=== PATIENT | female | born 1950 | race Caucasian/White ===

== ENCOUNTER 2020-03-27 10:14 | Outpatient (CLI) | payer MEDICARE, OTHER, SELFPAY ==
--- NOTE | ~2020-03-27 | MM_ITS ---
EXAMINATION: MM screening [facility] BI w yessica HISTORY: Screening mammogram TECHNIQUE: Craniocaudal and mediolateral oblique 3-D tomosynthesis images were obtained and synthetic 2-D images were generated. CAD analysis was submitted and interpreted. COMPARISON: Comparison to multiple prior studies sequentially, with oldest reviewed study dated 03/2013. BREAST PARENCHYMAL COMPOSITION: There are scattered areas of fibroglandular density. FINDINGS: There is no evidence of suspicious mass, calcification, or architectural distortion to sugg est malignancy in either breast. There has been no suspicious interval change. IMPRESSION: 1. No mammographic evidence of malignancy. 2. Recommend routine screening mammography in one year. BI-RADS Category 1: Negative Reviewed, dictated and finalized at location A.
== END 2020-03-27 10:15 | disposition home or self-care (01) ==
PROVIDERS: PCP Family Medicine; Visit Provider Obstetrics & Gynecology
DX: Z12.31 Encounter for screening mammogram for malignant neoplasm of breast (principal)
CPT/HCPCS: 77063; 77067

== ENCOUNTER 2020-04-16 13:29 | Outpatient (CLI) | payer MEDICARE, OTHER, SELFPAY ==
--- NOTE | ~2020-04-16 | DEXA_ITS ---
BMD(1) Young-Adult(2) Age-Matched(3) Region (g/cm2) T-score Z-score WHO Classification L1 1.124 -0.1 0.4 Normal L2 1.046 -1.4 -0.8 Osteopenia L3 1.115 -0.8 -0.3 Normal L4 1.039 -1.4 -0.9 Osteopenia L1-L4 1.078 -0.9 -0.4 Normal Trend: L1-L4 Change vs Change vs Measured Age BMD(1) Baseline Previous Date (years) (g/cm2) (%) (%) 04/16/2020 [age] 1.078 baseline - 1 - Statistically 68% of repeat scans fall within 1SD (+- 0.010 g/cm2 for AP Spine L1-L4) 2 - [place] (Combined NHANES (ages 20-30) / POS on CLOUD (ages 20-40)) AP Spine Reference Population (v112) 3 - Matched for Age, Weight (females 25-100 kg), Ethnic 11 - World Health Organization - Definition of Osteoporosis and Osteopenia for Women: Normal = T-score at or above -1.0 SD; Osteopenia = T-score between -1.0 and -2.5 SD; Osteoporosis = T-score at or below -2.5 SD; (WHO definitions only apply when a young healthy Women reference database is used to determine T-scores.) Printed: 04/16/2020 2:12:48 PM (13.60)76:3.00:22.22:27.0 0.00:12.36 0.60x1.05 33.1:%Fat=54.0% 0.00:0.00 0.00:0.00 Verify bone is centered and there is sufficient tissue next to bone. Filename: [id number] Scan Mode: Thick;OneScan 83.0 Azooo [id number] BMD(1) Young-Adult(2) Age-Matched(3) Region (g/cm2) T-score Z-score WHO Classification Neck 0.707 -2.4 -1.4 Osteopenia Total 0.727 -2.2 -1.5 Osteopenia Hip [place] Length Comparison (mm) (Right = 108.0 mm) (Mean = 105.4 mm) Trend: Total Change vs Change vs Measured Age BMD(1) Baseline Previous Date (years) (g/cm2) (%) (%) 04/16/2020 69.8 0.727 baseline - 1 - Statistically 68% of repeat scans fall within 1SD (+- 0.012 g/cm2 for Right Femur Total) 2 - [place] (Combined NHANES (ages 20-30) / POS on CLOUD (ages 20-40)) Femur Reference Population (v112) 3 - Matched for Age, Weight (females 25-100 kg), Ethnic 11 - World Health Organization - Definition of Osteoporosis and Osteopenia for Women: Normal = T-score at or above -1.0 SD; Osteopenia = T-score between -1.0 and -2.5 SD; Osteoporosis = T-score at or below -2.5 SD; (WHO definitions only apply when a young healthy Women reference database is used to determine T-scores.) Printed: 04/16/2020 2:12:48 PM (13.60)76:3.00:50.00:12.0 0.00:16.68 0.60x1.05 27.5:%Fat=49.1% 0.00:0.00 0.00:0.00 Neck Angle (deg)= 65 Filename: [id number] Scan Mode: Standard 37.0 uGy [employer] [id number] Dear Nliesh Quan, Your patient Iram Lord completed a BMD test on 04/16/2020 using the [employer] DXA System (analysis version: 13.60) manufactured by [employer]. The following summarizes the results of our evaluation. PATIENT BIOGRAPHICAL: Name: Iram Lord Date: 1950 Height: 63.0 in. Gender: Female Exam Date: 04/16/2020 Weight: 250.0 lbs. Indications: Back Pain, Caffeinated drinks, , Height Loss, Hyperparathyroid Fractures: Treatments: Calcium, Synthroid, Vitamin D ASSESSMENT: The BMD measured at Femur Neck is 0.707 g/cm2 with a T-score of -2.4. This patient is considered osteopenic according to World Health Organization (WHO) criteria. Bone density is between 10 and 25% below young normal. Fracture risk is moderate. Treatment
== END 2020-04-16 13:30 | disposition home or self-care (01) ==
LOC: CHSIMG 13:32
PROVIDERS: PCP Family Medicine; Visit Provider Family Medicine
DX: Z78.0 Asymptomatic menopausal state (principal)
CPT/HCPCS: 77080

== ENCOUNTER 2021-02-14 18:39 | Outpatient (CLI) | payer MEDICARE, OTHER, SELFPAY ==
--- NOTE | ~2021-02-14 | XR_ITS ---
EXAMINATION: XR knee RT min 4V DATE: 02/14/2021 19:02 INDICATION: Right knee pain TECHNIQUE: Four views of the right knee were obtained. COMPARISON: None. FINDINGS: Alignment is normal. No fracture or osteochondral lesion. There is severe osteoarthritis in the medial patellofemoral compartments and mild osteoarthritis of the lateral compartment. No joint effusion/synovitis. Soft tissues are unremarkable. IMPRESSION: 1. Severe osteoarthritis. Reviewed, dictated and finalized at location A. IMPRESSION: 1. Severe osteoarthritis.
--- NOTE | ~2021-02-14 | XR_ITS ---
EXAMINATION: XR knee LT min 4V DATE: 02/14/2021 19:02 INDICATION: Left knee pain TECHNIQUE: Four views of the left knee were obtained. COMPARISON: 09/19/2018 FINDINGS: Alignment is normal. No fracture or osteochondral lesion. There is moderate osteoarthritis of the medial and patellofemoral compartments and mild osteoarthritis of the lateral compartment. A m oderate-sized joint effusion is present. Soft tissues are unremarkable. IMPRESSION: 1. Moderate osteoarthritis. 2. Moderate-sized knee joint effusion. Reviewed, dictated and finalized at location A.
== END 2021-02-14 18:40 | disposition home or self-care (01) ==
LOC: CHSIMG 18:42
PROVIDERS: PCP Family Medicine; Visit Provider Family Medicine
DX: M17.0 Bilateral primary osteoarthritis of knee (principal)
CPT/HCPCS: 73564

== ENCOUNTER 2021-03-11 09:58 | Outpatient (RCR) | payer MEDICARE, OTHER, SELFPAY ==
--- NOTE | 2021-03-11 10:40 | PTOPEVAL ---
Thank you for referring Iram Lord to [facility] [place].? The patient is scheduled to be seen for therapy? __3__x/week for 12 visits. Please review, sign, date and return this plan of care RASHID. I agree with and certify that the following plan of care is medically necessary. Referring Physician Date Admitting Provider: Attending Provider: Nilesh Quan M.D. Referring Provider: *PT Outpatient Evaluation Start: 03/11/21 10:06 Freq: Status: Active Protocol: Document 03/11/21 10:06 IDANIA (Rec: 03/11/21 10:39 IDANIA [email or web address]) Therapy Assessment Status Assessment Status Assessment Status Evaluation Evaluation Information Problem Diagnosis bilateral knee pain Onset 02/08/21 Subjective Information Pt. reports that she has been Query Text:As Reported By Patient/ experinencing right knee pain Family and is going to get the right knee replaced soon. She states that she also has left knee pain and states that it is weak. She reports being fearful that the left knee will not support her if she undergo's right knee surgery. She describes pain on the inside of the knee on the right and left. She reports pain is most notable with walking and states that she has been using a ww for the past 4 weeks. She is afraid that she will trip and fall due to feeling unsteady. She reports that her goal is to decrease her left knee pain and improve her strength. Prior Level of Function Comments Additional Prior Level of Function Pt. has only been using a ww Comments for 4-5 weeks. She reports she is able to drive and still navigates in the community just painfully and slowly. Pain Assessment Timing of Pain Assessment Timing of Pain Assessment Pre-Treatment Pain Scale Pain Scale Used Numeric (1 - 10) Self Report Pain Assessment Left Knee(s) Reported Pain Level 7 Pain Description Aching Right Knee(s) Reported Pain Level 4 Pain Description Aching Pain Frequency Continuous Pain Score Pain Score 4,7: Self Report Interventions Used Inter
== END 2021-04-07 16:36 | disposition home or self-care (01) ==
LOC: CHSPT 09:58
PROVIDERS: PCP Family Medicine; Visit Provider Family Medicine
DX: M17.0 Bilateral primary osteoarthritis of knee (principal); M25.562 Pain in left knee
CPT/HCPCS: 97014; 97110; 97161; 97530; G0283

== ENCOUNTER 2021-04-03 12:56 | Outpatient (CLI) | payer MEDICARE, OTHER, SELFPAY ==
--- NOTE | ~2021-04-03 | MM_ITS ---
EXAMINATION: MM screening [facility] w yessica HISTORY: Screening mammogram TECHNIQUE: Craniocaudal and mediolateral oblique 3-D tomosynthesis images were obtained and synthetic 2-D images were generated. CAD analysis was submitted and interpreted. COMPARISON: 03/27/2020, 12/14/2018, 12/02/2017 bilateral digital screening mammogram examinations BREAST PARENCHYMAL COMPOSITION: There are scattered areas of fibroglandular density. FINDINGS: Stable mild fibroglandular asymmetry. There is no evidence of suspicious mass, calcificatio n, or architectural distortion to suggest malignancy in either breast. There has been no suspicious i nterval change. IMPRESSION: 1. No mammographic evidence of malignancy. 2. Recommend routine screening mammography in one year. BI-RADS Category 1: Negative Reviewed, dictated and finalized at location A.
== END 2021-04-03 12:57 | disposition home or self-care (01) ==
LOC: CHSIMG 12:58
PROVIDERS: PCP Family Medicine; Visit Provider Obstetrics & Gynecology
DX: Z12.31 Encounter for screening mammogram for malignant neoplasm of breast (principal)
CPT/HCPCS: 77063; 77067

== ENCOUNTER 2021-11-07 01:26 | Emergency (ER) | payer MEDICARE, OTHER, SELFPAY ==
[2021-11-07 01:28] VITALS: BP 124/64; PULSE 85; RESP 20; TEMP 35.6; O2SAT 95
--- NOTE | 2021-11-07 01:41 | ED.GENADULT ---
HPI - General Adult General Chief complaint: Unspecified Stated complaint: ITCHING Time Seen by Provider: 11/07/21 01:42 Source: patient Mode of arrival: ambulatory Limitations: no limitations History of Present Illness HPI narrative: this is a 71-year-old female with history of diabetes presents with lower extremity dermatitis/ rash with itching is started about 2 to 3 days ago patient has used [id number] topical preparations with minimal relief, there is no shortness of breath no audible wheezing no nausea vomiting or abdominal pain. Onset (ago): day(s) Location: lower extremity Radiation: other ( rash with itching) Severity: moderate Related Data Home Medications Medication Instructions Recorded Confirmed alendronate 70 mg tablet 70 mg PO WEEKLY 04/21/21 11/07/21 amlodipine 5 mg tablet 5 mg PO DAILY 04/21/21 11/07/21 omeprazole 40 mg capsule,delayed 40 mg PO DAILY 04/21/21 11/07/21 release valsartan 160 mg tablet 160 mg PO DAILY 04/21/21 11/07/21 atorvastatin 10 mg PO DAILY 11/07/21 11/07/21 furosemide 40 mg PO DAILY 11/07/21 11/07/21 levothyroxine [Levoxyl] 200 mcg PO DAILY 11/07/21 11/07/21 metformin 500 mg PO DAILY 11/07/21 11/07/21 sertraline 100 mg PO DAILY 11/07/21 11/07/21 Allergies Allergy/AdvReac Type Severity Reaction Status Date / Time Cephalosporins Allergy Mild ITCHING Verified 11/07/21 01:31 SWELLING Sulfa (Sulfonamide Allergy Mild Unknown Verified 11/07/21 01:31 Antibiotics) sulfanilamide Allergy Unknown Unknown Verified 11/07/21 01:31 Review of Systems Review of Systems: All systems reviewed & are unremarkable except as noted in HPI and below PMFSH Past Medical History Medical History Anxiety Arthritis Depression Hypertension Hypothyroidism Urinary frequency Surgical History Surgical History History of cholecystectomy History of hip surgery History of thyroid surgery Family History Family History Other Cerebrovascular accident Social History Social History Smoking status: Never smoker Alcohol intake: current Exam Const: General: cooperative, healthy appearing and comfortable HENMT: Head: normal to inspection Ears: hearing grossly normal bilaterally General nose exam: Normal external nose present Face and sinus: normal facial exam Mouth: Yes Normal oral and palatal mucosa present Eyes: General: appearance normal, both eyes and all related structures Eyelids: eyelids normal Conjunctivae: conjunctivae normal Sclera: sclerae normal Neck: Neck: normal visual inspection, full ROM and no lymphadenopathy Chest: Chest palpation & inspection: normal inspection of the chest and normal palpation of entire chest wall Resp: Effort & Inspection: normal respiratory effort and able to speak in complete sentences Auscultation: clear to auscultation bilaterally Cardio: Jugular venous distension: no JVD Palpation: normal PMI Rate: regular rate Rhythm: regular rhythm Back/Spine/Pelvis: Back: no CVA tenderness Skin: Rashes: rashes noted Neuro: General: oriented to person, oriented to place and oriented to time Psych: Appearance: grossly normal and well kempt Course Course Emergency Course: Patient received IM Depo-Medrol along with p.o. Benadryl Vital Signs Vital signs: Vital Signs Temperature 35.6 C L 11/07/21 01:28 Pulse Rate 85 11/07/21 01:28 Respiratory Rate 20 11/07/21 01:28 Blood Pressure 124/64 11/07/21 01:28 Pulse Oximetry 95 11/07/21 01:28 Temperature 35.6 C L 11/07/21 01:28 Pulse Rate 85 11/07/21 01:28 Respiratory Rate 20 11/07/21 01:28 Blood Pressure 124/64 11/07/21 01:28 Pulse Oximetry 95 11/07/21 01:28 Medical Decision Making Vital Signs Vital Signs: Vital Signs Temper
[2021-11-07] MEDS: diphenhydrAMINE HCl CAP 25 MG CAPSULE PO (01:52)
[2021-11-07] MEDS: methylPREDNISolone ACETATE 40 MG/ML VIAL 80 MG IM (01:52)
[2021-11-07 02:18] VITALS: BP 117/63; PULSE 88; RESP 16; TEMP 36.4; O2SAT 94
== END 2021-11-07 02:19 | disposition home or self-care (01) ==
PROVIDERS: Emergency Provider Emergency Medicine; PCP Family Medicine
DX: L23.9 Allergic contact dermatitis, unspecified cause (principal)
CPT/HCPCS: 96372; 99283; A9270; J1030

== ENCOUNTER 2022-02-13 12:40 | Outpatient (CLI) | payer MEDICARE, SELFPAY ==
[2022-02-13 17:54] LABS: Alanine Aminotransferase 32 U/L (14-59); Albumin Level 3.6 g/dL (3.4-5.0); Alkaline Phosphatase 88 U/L (46-116); Anion Gap 8 mmol/L (8-16); Aspartate Amino Transferase 37 U/L (15-37); Bilirubin,Total 0.8 mg/dL (0.00-1.00); Blood Urea Nitrogen 14 mg/dL (7-18); Calcium 8.9 mg/dL (8.5-10.1); Carbon Dioxide 29 mmol/L (21-32); Chloride 100 mmol/L (98-108); Cholesterol 117 mg/dL (0-200); Estimated Glomerular Filt Rate > 60; Glucose 117 mg/dL (70-99); HDL Direct 61 mg/dL (40-60); LDL Cholesterol Calculated 42 mg/dL (<130); Osmolality Calculated 285 mOsm/kg (285-295); Potassium 4.1 mmol/L (3.5-5.1); Sodium 137 mmol/L (136-145); Total Protein 8.9 g/dL (6.4-8.2); Triglycerides 68 mg/dL (0-150)
[2022-02-13 18:59] LABS: Creatinine Urine 31.56 mg/dL (40-278); MALB Creatinine Ratio 41.1 mg/g (0-30); Microalbumin Urine Random < 13.0 mg/L
[2022-02-13 19:06] LABS: Hemoglobin A1C 6.7 % (<5.7)
== END 2022-02-13 12:41 | disposition home or self-care (01) ==
LOC: CHSLAB 12:44
PROVIDERS: PCP Family Medicine; Visit Provider Family Medicine
DX: E78.2 Mixed hyperlipidemia (principal); E11.65 Type 2 diabetes mellitus with hyperglycemia
CPT/HCPCS: 36415; 80053; 80061; 82043; 83036

== ENCOUNTER 2022-04-14 12:24 | Outpatient (CLI) | payer MEDICARE, OTHER, SELFPAY ==
--- NOTE | ~2022-04-14 | MM_ITS ---
EXAMINATION: MM screening [facility] BI w yessica HISTORY: Screening TECHNIQUE: Craniocaudal and mediolateral oblique 3-D tomosynthesis images were obtained and synthetic 2-D images were generated. CAD analysis was submitted and interpreted. COMPARISON: Comparison to multiple prior studies sequentially, with oldest reviewed study dated 04/2016. BREAST PARENCHYMAL COMPOSITION: Breast composed of scattered areas of fibroglandular density FINDINGS: There is no evidence of suspicious mass, calcification, or architectural distortion to sugg est malignancy in either breast. There has been no suspicious interval change. IMPRESSION: 1. No mammographic evidence of malignancy. 2. Recommend routine screening mammography in one year. BI-RADS Category 1: Negative Reviewed, dictated and finalized at location A.
== END 2022-04-14 12:25 | disposition home or self-care (01) ==
LOC: CHSIMG 12:26
PROVIDERS: PCP Family Medicine; Visit Provider Family Medicine
DX: Z12.31 Encounter for screening mammogram for malignant neoplasm of breast (principal)
CPT/HCPCS: 77063; 77067

== ENCOUNTER 2022-07-23 01:50 | Emergency (ER) | payer MEDICARE, OTHER, SELFPAY ==
--- NOTE | ~2022-07-23 | XR_ITS ---
EXAMINATION: XR hand LT min 3V DATE: 07/23/2022 02:16 INDICATION: Left hand pain and swelling TECHNIQUE: Posteroanterior, oblique and lateral views of the left hand were obtained. COMPARISON: None. FINDINGS: Diffuse osteopenia. Alignment is normal. No fracture. Polyarticular osteoarthritis, severe at the fir st carpal metacarpal and fifth distal interphalangeal joints, moderate severity at the remaining inte rphalangeal joints and first metacarpophalangeal joint and mild at majority the remaining joints in t he left hand and wrist. No erosions to suggest inflammatory arthritis. IMPRESSION: 1. Moderate to severe polyarticular osteoarthritis at the left hand. No acute osseous abnormality. Reviewed, dictated and finalized at location A. IMPRESSION: 1. Moderate to severe polyarticular osteoarthritis at the left hand. No acute o sseous abnormality.
[2022-07-23 01:50] VITALS: BP 150/76; PULSE 80; RESP 16; TEMP 36.6; O2SAT 100
--- NOTE | 2022-07-23 02:03 | ED.GENADULT ---
HPI - General Adult General Chief complaint: Extremity Injury, Lower Stated complaint: Fall Hand pain History of Present Illness HPI narrative: Iram is a 72F with a PMH of osteoporosis, HLD, HTN, and hypothyroidism that presented to the ED after falling on her left hand several hours ago around dinner. She fell and landed on her left hand and now she has pain on the base of the left thumb and it hurts to move her fingers. Related Data Home Medications Medication Instructions Recorded Confirmed alendronate 70 mg tablet 70 mg PO WEEKLY 04/21/21 07/23/22 amlodipine 5 mg tablet 5 mg PO DAILY 04/21/21 07/23/22 omeprazole 40 mg capsule,delayed 40 mg PO DAILY 04/21/21 07/23/22 release valsartan 160 mg tablet 160 mg PO DAILY 04/21/21 07/23/22 atorvastatin 10 mg tablet 10 mg PO DAILY 11/07/21 07/23/22 furosemide 40 mg tablet 40 mg PO DAILY 11/07/21 07/23/22 levothyroxine 200 mcg tablet 200 mcg PO DAILY 11/07/21 07/23/22 (Levoxyl) sertraline 100 mg tablet 100 mg PO DAILY 11/07/21 07/23/22 empagliflozin 10 mg tablet 10 mg PO DIRECTED 07/23/22 07/23/22 (Jardiance) Allergies Allergy/AdvReac Type Severity Reaction Status Date / Time Cephalosporins Allergy Mild ITCHING Verified 07/23/22 02:05 SWELLING Sulfa (Sulfonamide Allergy Mild Unknown Verified 07/23/22 02:05 Antibiotics) sulfanilamide Allergy Unknown Unknown Verified 07/23/22 02:05 metformin Allergy Unknown Verified 07/23/22 02:05 Review of Systems Review of Systems: All systems reviewed & are unremarkable except as noted in HPI and below PMFSH Past Medical History Medical History Anxiety Arthritis Depression Hypertension Hypothyroidism Urinary frequency Surgical History Surgical History History of cholecystectomy History of hip surgery History of thyroid surgery Family History Family History Other Cerebrovascular accident Social History Social History Smoking status: Never smoker Alcohol intake: current Exam Const: General: healthy appearing Nutritional Appearance: well nourished Orientation/consciousness: patient oriented x3 Limitations: no limitations HENMT: Head: normal to inspection Ears: external ears normal Eyes: Conjunctivae: conjunctivae normal Neck: Neck: normal visual inspection Chest: Chest palpation & inspection: normal inspection of the chest Resp: Effort & Inspection: normal respiratory effort Cardio: Rate: regular rate Skin: General skin exam: normal color Rashes: no rashes Neuro: General: patient oriented x3 and moves all extremities Extrem: Other: Left hand is slightly swollen and TTP at the base of the left thumb. She can move all her fingers and has good sensation in all her fingers Psych: Mental Status: mental status grossly normal Course Course Emergency Course: Radiographs showed polyarticular arthritis, but no clear fracture seen. Official Radiologist report to follow Given arthritis, osteopenia and pain in the anatomic snuffbox she was placed in a thumb spica Vital Signs Vital signs: Vital Signs Temperature 98 F 07/23/22 01:50 Pulse Rate 80 07/23/22 01:50 Respiratory Rate 16 07/23/22 01:50 Blood Pressure 150/76 H 07/23/22 01:50 Pulse Oximetry 100 07/23/22 01:50 Oxygen Delivery Room Air 07/23/22 01:50 Temperature 98 F 07/23/22 01:50 Pulse Rate 80 07/23/22 01:50 Respiratory Rate 16 07/23/22 01:50 Blood Pressure 150/76 H 07/23/22 01:50 Pulse Oximetry 100 07/23/22 01:50 Oxygen Delivery Room Air 07/23/22 01:50 Medical Decision Making Vital Signs Vital Signs: Vital Signs Temperature 98 F 07/23/22 01:50 Pulse Rate 80 07/23/22 01:50 Respiratory Rate 16 07/23/22 01:50 Blood Pressure 150/76 H 1
--- NOTE | 2022-07-23 02:24 | PC.NURSE ---
ERP orders a wrist splint with thumb support. ERP applies splint to left wrist. PMS is still present after application and pt has no complaints.
[2022-07-23 02:35] VITALS: BP 126/60; PULSE 84; RESP 16; TEMP 36.6; O2SAT 100
[2022-07-23] MEDS: HYDROcodone/acetaminophen (*CRX) 5-325 MG TABLET 1 TAB PO (02:36)
== END 2022-07-23 02:51 | disposition home or self-care (01) ==
PROVIDERS: Emergency Provider Family Medicine; PCP Family Medicine
DX: M13.842 Other specified arthritis, left hand (principal); M79.642 Pain in left hand
CPT/HCPCS: 73130; 99283; A9270; L3908

== ENCOUNTER 2022-08-08 14:12 | Outpatient (CLI) | payer MEDICARE, OTHER, SELFPAY ==
--- NOTE | ~2022-08-08 | XR_ITS ---
XR hand LT min 3V DATE: 08/08/2022 14:35 INDICATION: Tenderness at anatomical snuffbox TECHNIQUE: 3 views of left hand COMPARISON: 07/23/2022 left hand FINDINGS: There is diffuse osteopenia. There is polyarticular osteoarthritis involving particularly the first carpometacarpal joint and mult iple interphalangeal joints in addition to the metacarpophalangeal joints. No fracture or dislocation, periosteal reaction or bone destruction or erosive change is noted. IMPRESSION: Polyarticular osteoarthritis Osteopenia No fracture or dislocation Reviewed, dictated and finalized at location A. 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
== END 2022-08-08 14:13 | disposition home or self-care (01) ==
LOC: CHSIMG 14:15
PROVIDERS: PCP Family Medicine; Visit Provider Physician Assistant
DX: M15.9 Polyosteoarthritis, unspecified (principal); M79.643 Pain in unspecified hand
CPT/HCPCS: 73130

== ENCOUNTER 2022-10-20 16:00 | Outpatient (CLI) | payer MEDICARE, SELFPAY ==
[2022-10-20 16:31] LABS: Hemoglobin A1C 6.5 % (<5.7)
[2022-10-20 16:57] LABS: Alanine Aminotransferase 20 U/L (14-59); Albumin Level 3.7 g/dL (3.4-5.0); Alkaline Phosphatase 97 U/L (46-116); Anion Gap 9 mmol/L (8-16); Aspartate Amino Transferase 19 U/L (15-37); Bilirubin,Total 0.4 mg/dL (0.00-1.00); Blood Urea Nitrogen 17 mg/dL (7-18); Calcium 8.6 mg/dL (8.5-10.1); Carbon Dioxide 30 mmol/L (21-32); Chloride 105 mmol/L (98-108); Cholesterol 122 mg/dL (0-200); Estimated Glomerular Filt Rate > 60; Glucose 121 mg/dL (70-99); HDL Direct 59 mg/dL (40-60); LDL Cholesterol Calculated 50 mg/dL (<130); Osmolality Calculated 300 mOsm/kg (285-295); Sodium 144 mmol/L (136-145); Total Protein 7.9 g/dL (6.4-8.2); Triglycerides 65 mg/dL (0-150)
[2022-10-20 17:17] LABS: Thyroid Stimulating Hormone 0.12 uIU/mL (0.36-3.74)
== END 2022-10-20 16:01 | disposition home or self-care (01) ==
LOC: CHSLAB 16:05
PROVIDERS: PCP Family Medicine; Visit Provider Physician Assistant
DX: E11.9 Type 2 diabetes mellitus without complications (principal); E78.2 Mixed hyperlipidemia; E03.9 Hypothyroidism, unspecified
CPT/HCPCS: 36415; 80053; 80061; 83036; 84443

== ENCOUNTER 2023-03-01 15:36 | Outpatient (CLI) | payer MEDICARE, OTHER, SELFPAY ==
[2023-03-01 16:37] LABS: Alanine Aminotransferase 35 U/L (14-59); Albumin Level 3.8 g/dL (3.4-5.0); Alkaline Phosphatase 96 U/L (46-116); Anion Gap 13 mmol/L (8-16); Aspartate Amino Transferase 36 U/L (15-37); Bilirubin,Total 0.9 mg/dL (0.00-1.00); Blood Urea Nitrogen 13 mg/dL (7-18); Calcium 8.8 mg/dL (8.5-10.1); Carbon Dioxide 27 mmol/L (21-32); Chloride 103 mmol/L (98-108); Cholesterol 130 mg/dL (0-200); Estimated Glomerular Filt Rate > 60; Glucose 108 mg/dL (70-99); HDL Direct 66 mg/dL (40-60); LDL Cholesterol Calculated 54 mg/dL (<130); Osmolality Calculated 297 mOsm/kg (285-295); Sodium 143 mmol/L (136-145); Thyroid Stimulating Hormone 0.71 uIU/mL (0.36-3.74); Total Protein 8.2 g/dL (6.4-8.2); Triglycerides 51 mg/dL (0-150)
[2023-03-01 16:57] LABS: Hemoglobin A1C 6.5 % (<5.7)
== END 2023-03-01 15:37 | disposition home or self-care (01) ==
LOC: CHSLAB 15:39
PROVIDERS: PCP Family Medicine; Visit Provider Family Medicine
DX: E11.9 Type 2 diabetes mellitus without complications (principal); E78.2 Mixed hyperlipidemia; E03.9 Hypothyroidism, unspecified
CPT/HCPCS: 36415; 80053; 80061; 83036; 84443

== ENCOUNTER 2023-04-16 11:46 | Outpatient (CLI) | payer MEDICARE, OTHER, SELFPAY ==
--- NOTE | ~2023-04-16 | MM_ITS ---
EXAMINATION: MM screening [facility] BI w yessica HISTORY: Screening TECHNIQUE: Craniocaudal and mediolateral oblique 3-D tomosynthesis images were obtained and synthetic 2-D images were generated. CAD analysis was submitted and interpreted. COMPARISON: No prior mammogram is available for comparison at this institution. BREAST PARENCHYMAL COMPOSITION: There are scattered areas of fibroglandular density. FINDINGS: There is no evidence of suspicious mass, calcification, or architectural distortion to sugg est malignancy in either breast. There has been no suspicious interval change. IMPRESSION: 1. No mammographic evidence of malignancy. 2. Recommend routine screening mammography in one year. BI-RADS Category 1: Negative Reviewed, dictated and finalized at location A.
== END 2023-04-16 11:47 | disposition home or self-care (01) ==
LOC: CHSIMG 11:47
PROVIDERS: PCP Family Medicine; Visit Provider Family Medicine
DX: Z12.31 Encounter for screening mammogram for malignant neoplasm of breast (principal)
CPT/HCPCS: 77063; 77067

== ENCOUNTER 2023-09-01 12:22 | Outpatient (CLI) | payer MEDICARE, OTHER, SELFPAY ==
[2023-09-01 12:44] LABS: Hemoglobin A1C 6.7 % (<5.7)
[2023-09-01 13:29] LABS: Thyroid Stimulating Hormone 0.64 uIU/mL (0.36-3.74)
== END 2023-09-01 12:23 | disposition home or self-care (01) ==
LOC: CHSLAB 12:25
PROVIDERS: PCP Family Medicine; Visit Provider Family Medicine
DX: E11.9 Type 2 diabetes mellitus without complications (principal); E03.9 Hypothyroidism, unspecified
CPT/HCPCS: 36415; 83036; 84443

== ENCOUNTER 2024-03-05 19:51 | Emergency (ER) | payer MEDICARE, OTHER, SELFPAY ==
[2024-03-05] VITALS (20 sets, daily range): BP systolic 96–159; BP diastolic 52–95; PULSE 84–114; RESP 8–26; TEMP 36.8; O2SAT 90–100
--- NOTE | ~2024-03-05 | XR_ITS ---
Clinical Indication: Cough PA and lateral views of the chest: Comparison: 02/11/2017 Findings: The lungs are clear, without evidence of focal consolidation or pleural effusion. Cardiome diastinal silhouette is within normal limits. Bones and soft tissues are unremarkable. Impression: Clear lungs. Reviewed, dictated and finalized at location . Impression: Clear lungs.
--- NOTE | 2024-03-05 19:55 | ED.GENADULT ---
HPI - General Adult General Chief complaint: Shortness of Breath/Dyspnea Stated complaint: shortness of breath Time Seen by Provider: 03/05/24 19:55 Source: patient Mode of arrival: ambulatory Limitations: no limitations History of Present Illness HPI narrative: 73-year-old elderly white female complained of cough shortness of breath With wheezing and productive cough of yellow sputum without any history of venous thromboembolism heart or lung disease. Been eating and drinking fine no rash or swelling lumps or bumps. No problems stooling. She has chronic stress incontinence. Denies any dizziness or lightheadedness bleeding or bruising. denies any other complaints. Related Data Home Medications Medication Instructions Recorded Confirmed alendronate 70 mg tablet 70 mg PO WEEKLY 04/21/21 03/05/24 amlodipine 5 mg tablet 5 mg PO DAILY 04/21/21 03/05/24 omeprazole 40 mg capsule,delayed 40 mg PO DAILY 04/21/21 03/05/24 release valsartan 160 mg tablet 160 mg PO DAILY 04/21/21 03/05/24 atorvastatin 10 mg tablet 10 mg PO DAILY 11/07/21 03/05/24 furosemide 40 mg tablet 40 mg PO DAILY 11/07/21 03/05/24 levothyroxine 200 mcg tablet 200 mcg PO DAILY 11/07/21 03/05/24 (Levoxyl) sertraline 100 mg tablet 100 mg PO DAILY 11/07/21 03/05/24 empagliflozin 10 mg tablet 10 mg PO DIRECTED 07/23/22 03/05/24 (Jardiance) Allergies Allergy/AdvReac Type Severity Reaction Status Date / Time Cephalosporins Allergy Mild ITCHING Verified 07/23/22 02:05 SWELLING Sulfa (Sulfonamide Allergy Mild Unknown Verified 07/23/22 02:05 Antibiotics) sulfanilamide Allergy Unknown Unknown Verified 07/23/22 02:05 metformin Allergy Unknown Verified 07/23/22 02:05 Review of Systems Review of Systems: All systems reviewed & are unremarkable except as noted in HPI and below PMFSH Past Medical History Medical History Anxiety Arthritis Depression Hypertension Hypothyroidism Urinary frequency Surgical History Surgical History History of cholecystectomy History of hip surgery History of thyroid surgery Family History Family History Other Cerebrovascular accident Social History Social History Smoking status: Never smoker Alcohol intake: current Exam Narrative: Elderly White female patient with mild apparent distress with audible wheezes.? Head normocephalic, atraumatic.? Eyes conjunctiva pink sclera nonicteric.? Extraocular movements are intact.? Ears externally normal.? Oropharynx is clear with moist mucous membranes without exudates.? Neck is supple nontender no lymphadenopathy.? Back is nontender.? Lungs diffuse wheezes with fair air exchange.? Heart is regular rate and rhythm 2/6 murmur at the left sternal border without gallops or rubs.? Chest wall nontender.? Back is nontender. Abdomen is soft and nontender no hepatosplenomegaly or masses no CVA tenderness no abdominal bruits.? Extremities: no cyanosis clubbing or edema. Calves are nontender with negative Homans signs. ? Skin is warm and dry Without lesions . Neurological patient is alert and oriented x4.? Motor and sensory grossly intact.? Gait is normal. Course Vital Signs Vital signs: Vital Signs Temperature 36.8 C 03/05/24 19:59 Pulse Rate 103 H 03/05/24 19:59 Respiratory Rate 20 03/05/24 19:59 Blood Pressure 113/67 03/05/24 19:59 Pulse Oximetry 93 03/05/24 19:59 Oxygen Delivery Room Air 03/05/24 19:59 Temperature 36.8 C 03/05/24 19:59 Pulse Rate 92 03/05/24 23:01 Respiratory Rate 16 03/05/24 22:28 Blood Pressure 137/95 H 03/05/24 23:01 Pulse Oximetry 91 03/05/24 23:01 Oxygen Delivery Room Air 03/05/24 19:59 Medical Decision Making MDM Narrative Medical decision heidi
--- NOTE | 2024-03-05 20:44 | PC.NURSE ---
ER provider at the bedside. call light in reach
--- NOTE | 2024-03-05 20:58 | ECG_ITS ---
Test Date: 2024-03-05 19:57:16 Measurements Intervals [place] Rate: 99 P: 27 NM: 144 QRS: 50 QRSD: 82 T: 46 QT: 339 QTc: 436 Interpretive Statements SINUS RHYTHM MINIMAL ST DEPRESSION [0.025+ mV ST DEPRESSION] No previous ECG available for comparison Electronically Signed On 03-07-2024 10:39:13 CDT by Trell Ordoñez M.D.
--- NOTE | 2024-03-05 21:02 | PC.NURSE ---
xray at the bedside
--- NOTE | 2024-03-05 21:10 | PC.NURSE ---
patient returned to room from xray
[2024-03-05] MEDS: ALBUTEROL SULFATE NEB 2.5 MG/3 ML INH INHALATION (21:22)
--- NOTE | 2024-03-05 21:41 | PC.NURSE ---
breathing treatment completed. lab at the bedside
[2024-03-05 21:59] LABS: Hematocrit 37.5 % (35.0-42.0); Hemoglobin 11.3 g/dL (11.7-13.8); Mean Corpuscular HGB Conc 30.1 g/dL (32-36); Mean Corpuscular Hemoglobin 25.9 pg (27.0-31.0); Mean Platelet Volume 11.4 fl (9.2-11.8); Platelet Count Result 224 K/mm3 (150-420); Red Blood Count 4.36 M/mm3 (4.20-5.40); Red Cell Distribution Width 16.8 % (11.6-14.4); White Blood Count 10.6 K/mm3 (4.8-10.8)
[2024-03-05 22:19] LABS: Partial Thromboplastin Time 26.2 Sec (23.9-30.70); Prothrombin Time 10.5 Seconds (9.50-12.1)
[2024-03-05] MEDS: IPRATROPIUM 0.5 MG/ALBUTEROL SULFATE 2.5 MG AMPUL.NEB 3 ML INHALATION (22:20)
[2024-03-05] MEDS: methylPREDNISolone SOD SUCC 125 MG VIAL IV PUSH (22:21)
[2024-03-05 22:32] LABS: Alanine Aminotransferase 23 U/L (14-59); Albumin Level 3.4 g/dL (3.4-5.0); Alkaline Phosphatase 86 U/L (46-116); Anion Gap 11 mmol/L (4-12); Aspartate Amino Transferase 26 U/L (15-37); Bilirubin,Total 0.7 mg/dL (0.00-1.00); Blood Urea Nitrogen 10 mg/dL (7-18); Calcium 8.7 mg/dL (8.5-10.1); Carbon Dioxide 29 mmol/L (21-32); Chloride 101 mmol/L (98-108); Estimated CRCL calculation 62 ml/min; Estimated Glomerular Filt Rate > 60; Glucose 126 mg/dL (70-99); NT Pro B Type Natriuretic Pept 266 pg/mL (0-450); Osmolality Calculated 293 mOsm/kg (285-295); Potassium 2.8 mmol/L (3.5-5.1); Sodium 141 mmol/L (136-145); Total Protein 8.5 g/dL (6.4-8.2); Troponin I 8.2 ng/L (0.00-60.4)
[2024-03-05 22:37] LABS: D Dimer 0.71 mg/L (0.19-0.50)
[2024-03-05 22:42] LABS: Strep Group A RT-PCR NOT DETECTED (Negative)
[2024-03-05 22:49] LABS: Influenza A QL RT-PCR Negative (Negative); Influenza B QL RT-PCR Negative (Negative); RSV RNA, RT-PCR Negative (Negative); SARS-CoV-2 RNA PCR Negative (Negative)
--- NOTE | 2024-03-05 23:01 | PC.NURSE ---
patient is resting on stretcher. waiting on provider to give test results. reports feeling better after breathing treatments. family at the bedside. call light in reach
--- NOTE | 2024-03-05 23:07 | PC.NURSE ---
ER provider at the bedside
[2024-03-05] MEDS: POTASSIUM CHLORIDE 20 MEQ ER TABLET 40 MEQ PO (23:17)
--- NOTE | 2024-03-05 23:23 | PC.NURSE ---
Dr Arndt is doing spacer education for inhaler.
[2024-03-05] MEDS: levoFLOXacin 500 MG TABLET PO (23:32)
--- NOTE | 2024-03-12 15:29 | PC.NURSE ---
final blood cultures x2 reviewed. No growth after 5 days . No change in plan of care.
== END 2024-03-05 23:42 | disposition home or self-care (01) ==
PROVIDERS: Emergency Provider Emergency Medicine; PCP Family Medicine
DX: J45.901 Unspecified asthma with (acute) exacerbation (principal); E87.6 Hypokalemia; F41.9 Anxiety disorder, unspecified; F32.A Depression, unspecified; I10 Essential (primary) hypertension; E03.9 Hypothyroidism, unspecified; Z79.899 Other long term (current) drug therapy; Z20.822 Contact with and (suspected) exposure to COVID-19
CPT/HCPCS: 36415; 71046; 80053; 83880; 84484; 85027; 85380; 85610; 85730; 87040; 87637; 87651; 93005; 94640; 96374; 99284; A9270; J2919

== ENCOUNTER 2024-03-24 09:53 | Outpatient (CLI) | payer MEDICARE, SELFPAY ==
[2024-03-24 14:11] LABS: Alanine Aminotransferase 23 U/L (14-59); Albumin Level 3.4 g/dL (3.4-5.0); Alkaline Phosphatase 80 U/L (46-116); Anion Gap 13 mmol/L (4-12); Aspartate Amino Transferase 32 U/L (15-37); Bilirubin,Total 0.6 mg/dL (0.00-1.00); Blood Urea Nitrogen 10 mg/dL (7-18); Calcium 8.2 mg/dL (8.5-10.1); Carbon Dioxide 25 mmol/L (21-32); Chloride 102 mmol/L (98-108); Cholesterol 126 mg/dL (0-200); Estimated Glomerular Filt Rate > 60; Glucose 132 mg/dL (70-99); HDL Direct 63 mg/dL (40-60); LDL Cholesterol Calculated 49 mg/dL (<130); Osmolality Calculated 291 mOsm/kg (285-295); Potassium 3.6 mmol/L (3.5-5.1); Sodium 140 mmol/L (136-145); Thyroid Stimulating Hormone 1.77 uIU/mL (0.36-3.74); Triglycerides 71 mg/dL (0-150)
[2024-03-24 17:00] LABS: Hemoglobin A1C 6.6 % (<5.7)
== END 2024-03-24 09:54 | disposition home or self-care (01) ==
LOC: CHSLAB 09:55
PROVIDERS: PCP Family Medicine; Visit Provider Family Medicine
DX: E11.9 Type 2 diabetes mellitus without complications (principal); E03.9 Hypothyroidism, unspecified
CPT/HCPCS: 36415; 80053; 80061; 83036; 84443

== ENCOUNTER 2024-04-18 07:21 | Outpatient (CLI) | payer MEDICARE, OTHER, SELFPAY ==
--- NOTE | ~2024-04-18 | MM_ITS ---
EXAMINATION: MM screening bertha BI w yessica HISTORY: Screening TECHNIQUE: Craniocaudal and mediolateral oblique 3-D tomosynthesis images were obtained and synthetic 2-D images were generated. CAD analysis was submitted and interpreted. COMPARISON: Comparison to multiple prior studies sequentially, with oldest reviewed study dated 04/2018. BREAST PARENCHYMAL COMPOSITION: Not dense: There are scattered areas of fibroglandular density. FINDINGS: There is no evidence of suspicious mass, calcification, or architectural distortion to sugg est malignancy in either breast. There has been no suspicious interval change. IMPRESSION: 1. No mammographic evidence of malignancy. 2. Recommend routine screening mammography in one year. BI-RADS Category 1: Negative Reviewed, dictated and finalized at location B.
== END 2024-04-18 07:22 | disposition home or self-care (01) ==
LOC: CHSIMG 07:23
PROVIDERS: PCP Family Medicine; Visit Provider Family Medicine
DX: Z12.31 Encounter for screening mammogram for malignant neoplasm of breast (principal)
CPT/HCPCS: 77063; 77067

== ENCOUNTER 2024-09-26 10:34 | Outpatient (CLI) | payer MEDICARE, SELFPAY ==
[2024-09-26 11:09] LABS: Hemoglobin A1C 7.8 % (<5.7)
[2024-09-26 11:48] LABS: Thyroid Stimulating Hormone 13.07 uIU/mL (0.36-3.74)
== END 2024-09-26 10:35 | disposition home or self-care (01) ==
PROVIDERS: PCP Family Medicine; Visit Provider Family Medicine
DX: E11.9 Type 2 diabetes mellitus without complications (principal); E03.9 Hypothyroidism, unspecified
CPT/HCPCS: 36415; 83036; 84443

== ENCOUNTER 2024-11-20 08:27 | Outpatient (CLI) | payer MEDICARE, OTHER, SELFPAY ==
--- NOTE | ~2024-11-20 | DEXA_ITS ---
Bone Density Report Name: NESTOR CLARKE Age: 74 Sex: Female Ethnicity: White Date of : 1950 Indication: osteopenia; prior fracture; rheumatoid arthritis; Referring Provider: BASIL, FIDELIA Gerard Study: Bone densitometry was performed. Exam Date: November 20, 2024 Accession number: [id number] Bone Density: Region BMD T-score Z-score Classification AP Spine(L2, L3, L4) 1.001 -0.7 1.9 Normal Femoral Neck (Right) 0.606 -2.2 0.0 Osteopenia Total Hip (Right) 0.700 -2.0 -0.1 Osteopenia World Health Organization criteria for BMD impression classify patients as: Normal (T-score at or above -1.0), Osteopenia (T-score between -1.0 and -2.5), or Osteoporosis (T-score at or below -2.5). 10-year Fracture Risk: FRAX not reported because: Prior hip or vertebral fracture Previous Exams: Region Exam Age BMD T-score BMD Change BMD Change Date g/cm2 vs Baseline vs Previous AP Spine (L2-L4) 11/20/2024 74 1.001 -0.7 0.060 (6.4%)# 0.060 (6.4%)# 04/16/2020 69 0.940 -1.3 Total Hip(Right) 11/20/2024 74 0.700 -2.0 0.031 (4.7%)# 0.031 (4.7%)# 04/16/2020 69 0.669 -2.2 *Denotes significance at 95% confidence level, LSC for AP Spine = 0.022 g/cm2, LSC for Total Hip = 0.027 g/cm2 # Denotes dissimilar scan types or analysis methods Clinical Information Provided by Patient: Have had a previous hip or vertebral fracture Has had a low trauma fracture Has rheumatoid arthritis Has used the following medications: Vitamin D, Calcium Patient maximum height was 65 Menopause Age: 48 No regular weight bearing exercise Does not regularly consume dairy products Drinks caffeinated beverages Onset of menses at age 10 Number of children 1 Impression: The patient has low bone mass, based on the Right Femoral Neck T-score. The patient has risk factors, including: previous fracture. No significant bone loss was observed. Discussion: INCREASED RISK OF FRACTURE DUE TO HISTORY OF FRACTURE. The patient's previous fracture puts the patient at high risk of a future fracture. In untreated patients, the risk of osteoporotic fracture increases approximately two-fold for each 1.0 SD decrease in T-score. Low bone density is not the only risk factor for fracture; also consider factors such as patient's age, frailty or poor health, risk of falling, risk of injury, previous osteoporotic fracture, family history of osteoporosis, cigarette smoking, low body weight, etc. Not everyone with a low trauma fracture has osteoporosis; osteomalacia and other metabolic bone disorders should also be considered. Patients who have osteoporosis should be evaluated for specific diseases and conditions (secondary causes) that may cause or contribute to bone loss and fracture risk. National Osteoporosis Foundation (NOF) recommends pharmacologic intervention for patients with a prior hip or vertebral fracture regardless of BMD T-score. The patient should follow a healthful lifestyle (good nutrition with adequate calcium and vitamin D, and appropriate weight-bearing exercise). Follow-Up: Consider a repeat BMD and Vertebral Fracture Assessment (VFA) exam in 2 years or sooner if medically necessary, to reassess this patient's status. Reported by: MOIZ on 11/20/2024 8:50:00 AM. Reviewed, dictated and finalized at location A.
--- OUTSIDE RECORDS SUMMARY | 2024-11-20 08:48 | XMS_ITS | Clinical Summary ---
Author Organization [facility] Address [address] [place] [address] Phone Care Team Providers Care Ict Sales Representative Name Role Phone Nilesh Quan MD Primary Care Provider [phone] Allergies Active Allergy Reactions Criticality Noted Date Comments Ofloxacin Itching 11/15/2017 Sulfa Antibiotics Unknown 11/15/2017 Medications levothyroxine (SYNTHROID) 88 MCG Tablet Take 88 mcg by mouth daily. Active SERTRALINE HCL PO Take by mouth. Active amLODIPine (NORVASC) 5 MG Tablet Take 5 mg by mouth daily. Active valsartan (DIOVAN) 160 MG Tablet Take 160 mg by mouth daily. Active omeprazole (PRILOSEC) 40 MG CAPSULE DELAYED RELEASE Take 40 mg by mouth daily. 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 Gender Identity Not on file Sexual Orientation Not on file Last Filed Vital Signs Vital Sign Reading Time Taken Comments Blood Pressure 112/78 06/19/2019 1:19 PM CDT Pulse 67 06/19/2019 1:19 PM CDT Temperature 36.4 C (97.6 F) 06/19/2019 1:19 PM CDT Respiratory Rate 16 06/19/2019 1:19 PM CDT Oxygen Saturation 97% 06/19/2019 1:19 PM CDT Inhaled Oxygen Concentration - - Weight 113.9 kg (251 lb 3.2 oz) 06/19/2019 1:19 PM CDT Height 162.6 cm (5' 4 ) 06/19/2019 1:19 PM CDT Body Mass Index 43.12 06/19/2019 1:19 PM CDT Plan of Treatment Health Maintenance Due Date Last Done Comments DEXA Bone Density 1950 Hepatitis C Virus (HCV) Screening 1950 TdaP Immunization 1950 Pneumococcal Immunization (5 0+ years) (1 of 1 - PCV) 1998 Zoster Immunization (1 of 2) 1998 Respiratory Syncytial Virus (RSV) Immunization (Adult) (1 - 1-dose 75+ series) 2023 Influenza Immunization (#1) 2024 SARS-COV-2 Immunization ( season) 2024 09/03/2021, 01/10/2021, 12/13/2020 Hepatitis B Immunization Aged Out No longer eligible based on patient's age to complete this topic Meningococcal Immunization (ACWY) Aged Out No longer eligible b ased on patient's age to complete this topic Rotavirus Immunization Aged Out No lo nger eligible based on patient's age to complete this topic Insurance MEDICARE [employer] Care Teams Ict Sales Representative Relationship Specialty Start Date End Date Nilesh Quan MD [address] [place] [address] PCP - General Family Medicine 11/15/17
--- OUTSIDE RECORDS SUMMARY | 2024-11-20 08:48 | XMS_ITS | Encounter Summary ---
Author Organization [facility] Address [address] [place] [address] Care Team Providers Care Gripper Machine Operator Name Role Phone Nilesh Quan MD Primary Care Provider [phone] Reason for Referral * Procedure (Routine) - New Request Specialty Diagnoses / Procedures Referred By Contac t Referred To Contact Diagnoses Hypoxemia Procedures Complete PFT (pre/post [place], Lung Vol, Diff Capacity) (52195, 79442, 29435, 90914) Nilesh Quan MD [address] [place] [address] Phone: tel: fax: Referral ID Status Reason Start Date Expiration Date V isits Requested Visits Authorized New Request 11/03/2024 12/04/2025 1 1 IFIED NEURODIAGNOSTIC TECHNOLOGIST Encounter Details Date Type Department Care Team (Late st Contact Info) Description 11/03/2024 Transcribe Orders [facility] Pre Access Team [address] [place] [address] Nilesh Quan MD [address] [place] [address] Social History Tobacco Use Types Packs/Day Years Used Date Smoking Tobacco: Never Smokeless Tobacco: Never [facility] Utilities Answer Date Recorded In the past 12 months has [facility] electric, gas, oil, or water company threatened to shut off services in your home? No 11/01/2024 Humiliation, Afraid, Rape, and Kick questionnair e Answer Date Recorded Within the last year, have y ou been afraid of your partner or ex-partner? No 11/01/2024 Within the last year, have y ou been humiliated or emotionally abused in other ways by your partner or ex-partner? No Within the last year, have y ou been kicked, hit, slapped, or otherwise physically hurt by your partner or ex-partner? No 11/01/2024 Within the last year, have y ou been raped or forced to have any kind of sexual activity by your partner or ex-partner? No 11/01/2024 Overall Financial Resource Strain (CARDIA) Answe r Date Recorded How hard is it for you to pa y for the very basics like food, housing, medical care, and heating? Not hard at all 11/01/2024 Hunger Vital Sign Answer Date Recorded Within the past 12 months, y ou worried that your food would run out before you got the money to buy more. Never true 11/01/19 25 Within the past 12 months, t he food you bought just didn't last and you didn't have money to get more. Never true 11/01/2024 PRAPARE - Transportation Answer Date Re corded In the past 12 months, has l ack of transportation kept you from medical appointments or from getting medications? No 01/2025 In the past 12 months, has l ack of transportation kept you from meetings, work, or from getting things needed for daily living? No 11/01/2024 Housing Stability Vital Sign Answer Jeff e Recorded In the last 12 months, was t here a time when you were not able to pay the mortgage or rent on time? No 11/01/2024 In the past 12 months, how m any times have you moved where you were living? 1 11/01/2024 At any time in the past 12 m [facility], were you homeless or living in a longterm (including now)? No 11/01/2024 Comments Unknown Sex and Gender Information Value Date Recorded Sex Assigned at Female 11/01/2024 11:54 AM CERTIFIED NEURODIAGNOSTIC TECHNOLOGIST Legal Sex Female 5:59 PM CERTIFIED NEURODIAGNOSTIC TECHNOLOGIST Gender Identity Not on file Sexual Orientation Not on file documented as of this encounter Functional Status * Are you deaf or do you have serious difficulty hearing Answer Date of Assessment Author Status No 11/01/2024 12:16 PM CERTIFIED NEURODIAGNOSTIC TECHNOLOGIST Liat Oconnor R N Active * Are you blind or do you have serious difficulty seeing, even when wearing glasses? Answer Date of Assessment Author Status No 11/01/2024 12:16 PM CERTIFIED NEURODIAGNOSTIC TECHNOLOGIST Liat Oconnor R N Active * Do you have serious difficulty walking or climbing stairs? Answer Date of Assessment Author Status No 11/01/2024 12:16 PM Liat Nieves R N Active * Do you have difficulty dressing or bathing? Answer Date of Assessment Author Status No 11/01/2024 12:16 PM Liat Nieves R N Active * Because of a physical, mental, or emotional condition, do you have difficulty doing errands alone such as visiting a doctor's office or shopping? Answer Date of Assessment Author Status No 11/01/2024 12:16 PM Liat Nieves R N Active documented as of this encounter Mental Status * Because of a physical, mental, or emotional condition, do you have serious difficulty concentrating, remembering, or making decisions? Answer Entry Date Author Status No 11/01/2024 12:16 PM Liat Nieves R N Active documented in this encounter Plan of Treatment Scheduled Orders Name Type Priority Associated Diagnoses Orde r Schedule Complete PFT (pre/post [place], Lung Vol, Diff Capacity) (36545, 77435, 18830, 41120) PFT Routine Hypoxemia Expected: 11/03/2024, Expires: 11/03/2025 documented as of this encounter Visit Diagnoses Diagnosis Hypoxemia- Primary documented in this encounter Care Teams Gripper Machine Operator Relationship Specialty Start Date End Date Nilesh Quan MD [address] [place] [phone] PCP - General FAMILY PRACTICE 09/24/20 documented as of this encounter
--- OUTSIDE RECORDS SUMMARY | 2024-11-20 08:48 | XMS_ITS | Encounter Summary ---
Author Organization [facility] Address [address] Attn: Epic Prelude ADT [place] [address] Care Team Providers Care Seam Rubbing Machine Operator Name Role Phone Unavailable Primary Care Provider Unavailabl e Encounter Details Date Type Department Care Team (Late st Contact Info) Description 04/27/1990 Outpatient Historical Siri Barksdale MD NO ADDRESS ON FILE Social History Tobacco Use Types Packs/Day Years Used Date Smoking Tobacco: Never Assessed Comments Unknown Sex and Gender Information Value Date Recorded Sex Assigned at Not on file 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
--- OUTSIDE RECORDS SUMMARY | 2024-11-20 08:48 | XMS_ITS | Clinical Summary ---
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 Active atorvastatin (LIPITOR) 10 MG tablet Take 1 tablet (10 mg total) by mouth nightly at bedtime. 08/24/2024 Active JARDIANCE 10 MG tablet Take 1 tablet (10 mg total) by mouth daily. 10/05/2024 Active furosemide (LASIX) 40 MG tablet Take 1 tablet (40 mg total) by mouth daily. 08/29/2024 Active levothyroxine (SYNTHROID) 175 MCG tablet Take 1 tablet (175 mcg total) by mouth daily. 01/24/2016 Active mirtazapine (REMERON) 7.5 MG Tab tablet Take 1 tablet (7.5 mg total) by mouth nightly at bedtime. 10/01/2024 Active omeprazole (PRILOSEC) 40 MG capsule Take 1 capsule (40 mg total) by mouth daily. Active traMADol (ULTRAM) 50 MG tablet Take 1 tablet (50 mg total) by mouth every 6 (six) hours as needed. 02/10/2016 Active valsartan (DIOVAN) 160 MG tablet Take 1 tablet (160 mg total) by mouth daily. Active Multiple Vitamins-Minera ls (PRESERVISION AREDS 2 OR) Take 1 tablet by mouth daily. Active sertraline (ZOLOFT) 100 MG tablet Take 2 tablets (200 mg total) by mouth daily. Active Calcium Carbonate-Vit D-Min (CALCIUM 1200) 9103-4837 MG-UNIT Chew Tab Chew 1 tablet by mouth daily. Active Vitamin D3 (CHOLECALCIFERO L) 50 mcg tablet Take 1 tablet (50 mcg total) by mouth daily. Active alendronate (FOSAMAX) 70 MG tablet Take 1 tablet (70 mg total) by mouth every 7 days. Active Acetaminophen (TYLENOL ARTHRITIS PAIN OR) Take 1-2 tablets by mouth every 8 (eight) hours as needed. Active albuterol sulfate HFA 108 (90 Base) MCG/ACT inhaler Inhale 2 puffs into the lungs every 6 (six) hours as needed for Wheezing. 25.5 g 11/02/2024 Active Active Problems Problem Noted Date Diagnosed Date Hypoxia 11/01/2024 Encounters Date Type Department Care Team Description 11/03/2024 Transcribe Orders [facility] Pre Access Team [address] [place] [address] Nilesh Quan MD 11/01/2024 12:00 PM NETSUITE CONSULTANT - 11/02/2024 12:27 PM [facility] Hospital Encounter [place] [facility] [address] [place] [address] Nilesh Quan MD Discharge Disposition: Home or Self Care (Routine Discharge) 11/01/2024 Travel from Last 3 Months Immunizations Name Administration Dates Next Due Influenza Adult (Generic) 07/01/2021 Social History Tobacco Use Types Packs/Day Years Used Date Smoking Tobacco: Never Smokeless Tobacco: Never Tobacco Cessation:Counseling Given: Not Answered [facility] Utilities Answer Date Recorded In the past 12 months has [facility] [employer], [employer], oil, or water [employer] threatened to shut off services in your [...] any time in the past 12 m [facility], were you homeless or living in a intermediate (including now)? No 11/01/2024 Comments Unknown Sex and Gender Information Value Date Recorded Sex Assigned at Female 11/01/2024 11:54 AM NETSUITE CONSULTANT Legal Sex Female 5:59 PM NETSUITE CONSULTANT Gender Identity Not on file Sexual Orientation Not on file Last Filed Vital Signs Vital Sign Reading Time Taken Comments Blood Pressure 151/69 11/02/2024 5:23 AM NETSUITE CONSULTANT Pulse 85 11/02/2024 5:23 AM NETSUITE CONSULTANT Temperature 36.6 C (97.9 F) 11/02/2024 5:23 AM NETSUITE CONSULTANT Respiratory Rate 18 11/02/2024 5:23 AM NETSUITE CONSULTANT Oxygen Saturation 94% 11/02/2024 5:23 AM NETSUITE CONSULTANT Inhaled Oxygen Concentration - - Weight 108 kg (238 lb) 11/01/2024 12:15 PM NETSUITE CONSULTANT Height 160 cm (5' 3 ) 11/01/2024 12:15 PM NETSUITE CONSULTANT Body Mass Index 42.16 11/01/2024 12:15 PM NETSUITE CONSULTANT Plan of Treatment Health Maintenance Due Date Last Done Comments Hepatitis C 1966 DTaP, Tdap and Td Vaccines ( 1 - Tdap) 1967 Zoster Vaccines (1 of 2) 1998 Annual Medicare Wellness Visit 2013 Dexa Scan (General) 2013 Pneumococcal Vaccine: 65+ Years (1 of 1 - PCV) 2013 RSV Immunization or 60+ Years (1 - 1-dose 75+ series) 2023 COVID-19 Vaccine (4 - 2023-2 5 season) 2024 09/03/2021, 01/10/2021, 12/13/2020 Influenza Adult (#1) 2024 07/01/2021, 08/16/2019 Meningococcal B Vaccine Aged Out No l onger eligible based on patient's age to complete this topic Meningococcal Vaccine Aged Out No navdeep shauna eligible based on patient's age to complete this topic RSV Immunizations Under 20 Months Aged Out No longer eligible b ased on patient's age to complete this topic Procedures Procedure Name Priority Date/Time Associated Diagnosis Comments URINE BACTERIA CULTURE Routine 4:52 PM NETSUITE CONSULTANT HC URINALYSIS AUTO W/MICRO Routine 11/01/2024 4:52 PM NETSUITE CONSULTANT CTA CHEST PE PROTOCOL STAT 11/01/2024 3:07 PM NETSUITE CONSULTANT PRO-BRAIN NATRIURETIC PEPTIDE Routine 11/01/2024 1:14 PM NETSUITE CONSULTANT COMPREHENSIVE METABOLIC PANEL Routine 11/01/2024 1:14 PM NETSUITE CONSULTANT CBC W/DIFF AUTOMATED STAT 11/01/2024 1:14 PM NETSUITE CONSULTANT from Last 3 Months Results * (ABNORMAL) URINALYSIS (11/01/2024 4:52 PM NETSUITE CONSULTANT) COLOR (U) YELLOW 11/01/2024 5:02 PM [facility] TRANSPARENCY CLEAR 11/01/2024 5:02 PM [facility] SPECIFIC GRAVITY (U) 1.010 1.000 - 1.025 11/01/2024 5:02 PM [facility] U PH 5.5 5.0 - 8.0 11/01/2024 5:02 PM [facility] LEUKOCYTES (U) NEGATIVE NEGATIVE 11/01/2024 5:02 PM [facility] NITRITES NEGATIVE NEGATIVE 11/01/2024 5:02 PM [facility] PROTEIN RANDOM (U) NEGATIVE NEGATIVE 11/01/2024 5:02 PM [facility] GLUCOSE (U) 2+(A) NEGATIVE 11/01/2024 5:02 PM [facility] KETONES MG/DL (U) NEGATIVE NEGATIVE 11/01/2024 5:02 PM [facility] UROBILINOGEN 1.0(H) <1.0 EU/DL 11/01/2024 5:02 PM [facility] BILIRUBIN (U) NEGATIVE NEGATIVE 11/01/2024 5:02 PM [facility] BLOOD (U) NEGATIVE NEGATIVE 11/01/2024 5:02 PM [facility] WBC/HPF 0-5 0 - 5 /HPF 11/01/2024 5:02 PM [facility] RBC/HPF 0-5 0 - 5 /HPF 11/01/2024 5:02 PM [facility] EPI/LPF RARE /LPF 11/01/2024 5:02 PM [facility] BACTERIA (U) 1+ /HPF 11/01/2024 5:02 PM [facility] URINE SPECIMEN OBTAINED BY CLEAN CATCH PROCEDURE / Unknown 11/01/2024 4:52 PM NETSUITE CONSULTANT us Nilesh Quan MD URINE ORDERABLES Final Result [facility] [address] [place] [address], [place] [phone] * URINE BACTERIA CULTURE (11/01/2024 4:52 PM NETSUITE CONSULTANT) SPEC DESCRIPTION URINE CLEAN CATCH 11/01/2024 4:52 PM NETSUITE CONSULTANT [facility] SPECIAL REQUESTS NO SPECIAL REQUEST 11/01/2024 4:52 PM NETSUITE CONSULTANT [facility] CULTURE RESULT FEW CONTAMINANTS 03/2025 9:54 AM NETSUITE CONSULTANT [facility] URINE SPECIMEN OBTAINED BY CLEAN CATCH PROCEDURE / Unknown 11/01/2024 4:52 PM NETSUITE CONSULTANT 11/01/2024 4:56 PM NETSUITE CONSULTANT us Nilesh Quan MD MICROBIOLOGY - GENERAL ORDERAB LES Final Result Performing Organization Address [facility] Co de Phone Number [facility] [address] [place] [address], [place] [phone] [facility] [address] [place] [address], [place] [phone] * CTA CHEST PE PROTOCOL (11/01/2024 3:07 PM NETSUITE CONSULTANT) Anatomical Region Laterality Modality Chest Computed Tomogra phy 11/01/2024 3:29 PM NETSUITE CONSULTANT Impressions 11/01/2024 3:44 PM NETSUITE CONSULTANT IMPRESSION: 1. Negative for pulmonary embolism as described. 2. Centrilobular emphysema and probable small airways disease. 3. No findings of pneumonia. No pleural effusion. Ordered By: NILESH QUAN Interpreted By: Barry Parrish MD, 11/01/2024 3:29 PM Narrative 11/01/2024 3:44 PM NETSUITE CONSULTANT [address] [place] [address] Examination: CTA chest. Exam time: 1505 hours. Clinical history: Dyspnea. Leukocytosis. Prior cholecystectomy. Comparison: None. Technique: Thin section spiral axial scans were acquired through the chest during the administration of intravenous contrast for evaluation of the great vessels. Coronal, sagittal and 3-D MIP coronal reconstructions were performed from the data set. A dose lowering technique was used for this procedure, which may include, but is not limited to, dose reduction techniques, automated exposure control, the use of iterative reconstruction and ALARA/Image Gently techniques. Findings: Motion limits assessment of the pulmonary arteries beyond the main and lobar branches. Within this limitation, no pulmonary embolism is identified. Mild atherosclerotic calcification of the aorta and arch vessels noted. The heart and great vessels are otherwise unremarkable. There are calcified mediastinal and right hilar lymph nodes, compatible with old granulomatous disease. No hilar or mediastinal adenopathy is identified. No endobronchial abnormality is identified. There are changes of centrilobular emphysema. There is minor linear scarring in the right upper lobe. Mosaic appearance of the lungs suggests small airways disease. There is no dominant mass, suspicious nodule or focal airspace opacity. There is no pleural effusion or pneumothorax. The chest wall structures appear intact. The included sections through the upper abdomen show no acute process. The gallbladder is not identified, compatible with the history. Changes suggesting fundoplication are evident. Correlation with the history is advised. Procedure Note Barry Parrish MD - 11/01/2024 [place] [id number] [place] [address] Examination: CTA chest. Exam time: 1505 hours. Clinical history: Dyspnea. Leukocytosis. Prior cholecystectomy. Comparison: None. Technique: Thin section spiral axial scans were acquired through the chestduring the administration of intravenous contrast for evaluation of thegreat vessels. Coronal, sagittal and 3-D MIP coronal reconstructions wereperformed from the data set. A dose lowering technique was used for thisprocedure, which may include, but is not limited to, dose reductiontechniques, automated exposure control, the use of iterativereconstruction and ALARA/Image Gently techniques. Findings: Motion limits assessment of the pulmonary arteries beyond themain and lobar branches. Within this limitation, no pulmonary embolism isidentified. Mild atherosclerotic calcification of the aorta and archvessels noted. The heart and great vessels are otherwise unremarkable.There are calcified mediastinal and right hilar lymph nodes, compatiblewith old granulomatous disease. No hilar or mediastinal adenopathy isidentified. No endobronchial abnormality is identified. There are changesof centrilobular emphysema. There is minor linear scarring in the rightupper lobe. Mosaic appearance of the lungs suggests small airways disease.There is no dominant mass, suspicious nodule or focal airspace opacity.There is no pleural effusion or pneumothorax. The chest wall structuresappear intact. The included sections through the upper abdomen show noacute process. The gallbladder is not identified, compatible with thehistory. Changes suggesting fundoplication are evident. Correlation withthe history is advised. IMPRESSION: 1. Negative for pulmonary embolism as described. 2. Centrilobular emphysema and probable small airways disease. 3. No findings of pneumonia. No pleural effusion. Ordered By: NILESH QUAN Interpreted By: Barry Parrish MD, 11/01/2024 3:29 PM Nilesh Quan MD CT Final Result * PRO-BRAIN NATRIURETIC PEPTIDE (11/01/2024 1:14 PM NETSUITE CONSULTANT) PRO-B TYPE NATRIURETIC PEPTIDE 65 <450 PG/ML 11/01/2024 1:50 PM NETSUITE CONSULTANT [facility] Comment: CUT POINTS ESTABLISHED BY INTERNATIONAL COLLABORATIVE ON NT PROBNP (ICON) STUDY (2006). AGE INDEPENDENT: <300 PG/ML HAS A 99% NEGATIVE PREDICTIVE VALUE FOR EXCLUDING ACUTE CHF <50 YEARS: >450 PG/ML IS CONSISTENT WITH ACUTE CHF 50-75 YEARS: >900 PG/ML IS CONSISTENT WITH ACUTE CHF >75 YEARS: >1800 PG/ML IS CONSISTENT WITH ACUTE CHF IN PATIENTS WITH RENAL INSUFFICIENCY (GFR <60), >1200 PG/ML YIELDS A DIAGNOSTIC SENSITIVITY AND SPECIFICITY OF 89% AND 72% FOR ACUTE CHF. 11/01/2024 1:14 PM NETSUITE CONSULTANT Nilesh Quan MD LABORATORY Final Result [facility] [address] [place] [address], * (ABNORMAL) COMPREHENSIVE METABOLIC PANEL (11/01/2024 1:14 PM NETSUITE CONSULTANT) SODIUM S/P/B 138 136 - 145 MMOL/L 11/01/2024 1:50 PM [facility] POTASSIUM S/P/B 3.4(L) 3.5 - 5.1 MMOL/L 11/01/2024 1:50 PM [facility] CHLORIDE S/P/B 100 98 - 107 MMOL/L 11/01/2024 1:50 PM [facility] CO2 27.9 21.0 - 32.0 MMOL/L 11/01/2024 1:50 PM [facility] GLUCOSE 138(H) 70 - 99 MG/DL 11/01/2024 1:50 PM [facility] Comment: FASTING GLUCOSE 100 TO 125 MG/DL IS CONSISTENT WITH IMPAIRED FASTING GLUCOSE. FASTING GLUCOSE >125 MG/DL IS CONSISTENT WITH DIABETES. RANDOM GLUCOSE >200 MG/DL WITH HYPERGLYCEMIC SYMPTOMS IS CONSISTENT WITH DIABETES. PER ADA GUIDELINES BUN 17 6 - 24 MG/DL 11/01/2024 1:50 PM [facility] CREATININE S/P/B 0.84 0.55 - 1.02 MG/DL 11/01/2024 1:50 PM [facility] CALCIUM S/P/B 8.4 8.4 - 10.5 MG/DL 11/01/2024 1:50 PM [facility] BILIRUBIN TOTAL S/P/B 0.7 0.2 - 1.0 MG/DL 11/01/2024 1:50 PM [facility] Comment: THIS ASSAY IS NOT RECOMMENDED FOR PATIENTS UNDERGOING TREATMENT WITH ELTROMBOPAG DUE TO THE POTENTIAL FOR FALSELY ELEVATED RESULTS. ALKALINE PHOSPHATASE S/P/B 113 55 - 142 U/L 11/01/2024 1:50 PM [facility] AST 47(H) 15 - 37 U/L 11/01/2024 1:50 PM [facility] ALT 29 14 - 59 U/L 11/01/2024 1:50 PM [facility] TOTAL PROTEIN S/P/B 8.8(H) 6.4 - 8.2 G/DL 11/01/2024 1:50 PM NETSUITE CONSULTANT [facility] ALBUMIN S/P/B 3.4 3.4 - 5.0 G/DL 11/01/2024 1:50 PM NETSUITE CONSULTANT [facility] ANION GAP 10.1 5.0 - 15.0 MMOL/L 11/01/2024 1:50 PM NETSUITE CONSULTANT [facility] OSMOLALITY (CALC) 290 MOSM/KG 025 1:50 PM NETSUITE CONSULTANT [facility] Comment:REFERENCE RANGE NOT ESTABLISHED GFR ESTIMATE 72(L) >89 ML/MIN/1. 73 M2 11/01/2024 1:50 PM NETSUITE CONSULTANT [facility] GFR NOTES GFR REFERENCE S: 11/01/2024 1:50 PM [facility] Comment: THE ESTIMATED GFR IS CALCULATED USING THE 2020 CKD-EPI EQUATION. THE FOLLOWING CATEGORIES FOR GRADING RENAL FUNCTION ARE RECOMMENDED BY THE INTERNATIONAL SOCIETY OF NEPHROLOGY (KDIGO 2012 CLINICAL PRACTICE GUIDELINE). G1,NORMAL OR HIGH: >89 ml/min/1.73 m2 G2,MILDLY DECREASED: 60-89 ml/min/1.73 m2 G3A,MILDLY TO MODERATELY DECREASED: 45-59 ml/min/1.73 m2 G3B,MODERATELY TO SEVERELY DECREASED: 30-44 ml/min/1.73 m2 G4,SEVERELY DECREASED: 15-29 ml/min/1.73 m2 G5,KIDNEY FAILURE: <15 ml/min/1.73 m2 11/01/2024 1:14 PM NETSUITE CONSULTANT Nilesh Quan MD LABORATORY Final Result [facility] [address] [place] [address], * (ABNORMAL) CBC W/DIFF AUTOMATED (11/01/2024 1:14 PM NETSUITE CONSULTANT) WBC 11.63(H) 4.00 - 10.80 x10'3/uL 11/01/2024 1:24 PM NETSUITE CONSULTANT [facility] RBC 4.52 4.10 - 5.40 x10'6/uL 11/01/2024 1:24 PM [facility] HGB 11.3(L) 12.0 - 16.0 G/DL 11/01/2024 1:24 PM [facility] HCT 36.9 36.0 - 47.0 % 11/01/2024 1:24 PM [facility] MCV 81.6 78.0 - 100.0 FL 11/01/2024 1:24 PM [facility] MCH 25.0(L) 27.0 - 31.0 PG 11/01/2024 1:24 PM [facility] MCHC 30.6(L) 33.0 - 36.0 G/DL 11/01/2024 1:24 PM [facility] RDW 18.7(H) 11.5 - 14.5 % 11/01/2024 1:24 PM [facility] PLT 258 150 - 350 x10'3/uL 11/01/2024 1:24 PM [facility] MPV 11.7(H) 7.4 - 10.4 FL 11/01/2024 1:24 PM [facility] CBC COMMENT NORMAL REFERENCE RANGE NOT ESTABLISHED FOR THE PROPORTIONAL LEUKOCYTE DIFFERENTIAL. 11/01/2024 1:24 PM [facility] NEUTROPHILS % 59.7 % 11/01/2024 1:24 PM [facility] LYMPHOCYTES % 29.4 % 11/01/2024 1:24 PM [facility] MONOCYTES % 7.3 % 11/01/2024 1:24 PM [facility] EOSINOPHILS % 2.5 % 11/01/2024 1:24 PM [facility] BASOPHILS % 0.8 % 11/01/2024 1:24 PM [facility] IMMATURE GRANS % 0.3 % 11/01/19 1:24 PM [facility] NRBC % 0.0 % 11/01/2024 1:24 PM [facility] ABS. NEUTROPHILS 6.95 1.60 - 8.30 x10'3/uL 11/01/2024 1:24 PM NETSUITE CONSULTANT [facility] ABS. LYMPHOCYTES 3.42 0.80 - 4.70 x10'3/uL 11/01/2024 1:24 PM NETSUITE CONSULTANT [facility] ABS. MONOCYTES 0.85 0.00 - 1.50 x10'3/uL 11/01/2024 1:24 PM NETSUITE CONSULTANT [facility] ABS. EOSINOPHILS 0.29 0.00 - 0.40 x10'3/uL 11/01/2024 1:24 PM NETSUITE CONSULTANT [facility] ABS. BASOPHILS 0.09 0.00 - 0.20 x10'3/uL 11/01/2024 1:24 PM NETSUITE CONSULTANT [facility] ABS. IMMATURE GRANULOCYTES 0.03 0.00 - 0.03 x10'3/uL 11/01/2024 1:24 PM NETSUITE CONSULTANT [facility] ABS. NUCLEATED RBC'S 0.00 0.00 - 0.01 x10'3/uL 11/01/2024 1:24 PM NETSUITE CONSULTANT [facility] 11/01/2024 1:14 PM NETSUITE CONSULTANT Nilesh Quan MD LABORATORY Final Result [facility] [address] [place] [address], from Last 3 Months Insurance MEDICARE [employer] Advance Directives * Full Code (Latest Code Status on File) Date Activated Date Inactivated Comments 11/01/2024 4:54 PM 11/02/2024 2:27 PM Care Teams Airplane Tube Builder Relationship Specialty Start Date End Date Nilesh Quan MD [address] [place] [id number] PCP - General FAMILY PRACTICE 09/24/20
--- OUTSIDE RECORDS SUMMARY | 2024-11-20 08:48 | XMS_ITS | Clinical Summary ---
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
== END 2024-11-20 08:28 | disposition home or self-care (01) ==
PROVIDERS: PCP Family Medicine; Visit Provider Physician Assistant
DX: Z78.0 Asymptomatic menopausal state (principal); M85.89 Other specified disorders of bone density and structure, multiple sites
CPT/HCPCS: 77080

== ENCOUNTER 2024-11-28 12:41 | Outpatient (CLI) | payer MEDICARE, OTHER, SELFPAY ==
--- OUTSIDE RECORDS SUMMARY | 2024-11-28 14:19 | XMS_ITS | Encounter Summary ---
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
--- OUTSIDE RECORDS SUMMARY | 2024-11-28 14:19 | XMS_ITS | Clinical Summary ---
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
--- OUTSIDE RECORDS SUMMARY | 2024-11-28 14:19 | XMS_ITS | Data Portability ---
Author Organization [facility], [address] [facility] ([place]) Address [address] [place] [address] Care Team Providers Care Solution Advisor Name Role Phone AMINATA QUAN Primary Care Provider AMINATA QUAN Referring Provider [phone] Assessment Encounter Date Assessment Date Assessment LastModified by Organization Details LastModified Time 07/21/2024 07/21/2024 Ms. Lord was seen for her 6-month hearing aid check. She is doing great with her right Da hearing aid and her left Phonak Jada UP-675 hearing aid. I changed the tubing and both hearing aids. I removed 8.2 uL of moisture from both hearing aids. Recommendations: 1. Return to the office in 6 months for her next check. She will make an appointment with her ear nose throat physician. dusty Not available 07/21/2024 17:45:54 08/15/2024 08/15/2024 She is here for follow-up of her Canal wall down mastoid performed bilaterally by Dr. Lazarus Winkler in [place] in the distant past and she was using having some drainage, but has not been any drainage recently. She says sometimes she takes that her hearing aid will be wet and she notices more in the left side compared to the right. She was last seen by me in 2021. She did have a mixed hearing loss in both ears, does wear hearing aids bilaterally. PHYSICAL EXAMINATION: Well developed, well nourished in no acute distress. Patient able to communicate verbally with a normal voice. GENERAL: Inspection of head reveals no significant scars, lesions, or masses with good facial symmetry. EYES: Extraocular movements were intact with normal gaze. HEAD AND FACE: Overall appearance appeared normal. No scars, lesions, or masses. EARS: Both external pinnas were symmetric and without lesions. RIGHT external canal: Canal wall down mastoid which was relatively clean, and some loss of landmarks RIGHT tympanic membrane: Loss of landmarks of the middle ear space, but no evidence of otorrhea or granulation tissue.. LEFT external canal: Canal with mastoid, with some mild moisture and this was suction, and no lesions were noted.. LEFT tympanic membrane: Loss of landmarks in the ear, with thickened tympanic membrane. Darling was midline Rinne's are negative bilaterally. She had dramatic decrease hearing to finger rub bilaterally. NOSE: External nose appeared straight; Septum was relatively straight nasal mucosa appeared normal. . MOUTH AND PHARYNX:Lips, and gums were unremarkable Exam of oral cavity, including oral mucosa, hard and soft palate were normal Tongue was normal Tonsils were small to absent, and posterior pharynx, appeared within normal limits. NECK: Supple with no evidence of masses, and palpation of the neck revealed no palpable lymphadenopathy; thyroid appeared normal and symmetric; trachea midline; overall appearance of neck appeared symmetrical. PLAN: 1. Bilateral canal wall down mastoid, with recent bouts of otorrhea, and I recommend she try to keep her hearing aids out intermittently in either ear. I informed her that currently she does not have any infection. 2. Boric acid/nystatin powder was applied to both ears. 3. She is to obtain a Anjel's ear dryer or other ear dryer, and literature was given to her and uses on a regular basis in each ear. 4. She may follow me if and when she has further issues. [email or web address] Not available 08/15/2024 12:32:27 11/22/2024 11/22/2024 Ms. Lord was seen for a hearing evaluation at the request of Dr. Quan. She reports having difficulty hearing speech. She wears 1 Phonak Jada UP in her left ear with an earmold and a Da BTE in her right ear. Otoscopy revealed a visible tympanic membrane, bilaterally. Hearing evaluation was conducted with insert earphones. Results revealed a moderately severe sloping to profound mixed hearing loss in both ears. Speech Leather Grainer Thresholds were 80 DB HL, bilaterally. Word recognition scores were excellent in both ears. *Threshold slightly decreased in the high frequencies in both ears compared to her last test at this office. Hearing aid check: I reprogrammed her left earmold and removed moisture from both hearing aids. An impression was taken of her right ear without incident for new earmold. She would like a new hearing aid for her right ear and she would like it to match the left and so she would like to purchase one Phonak Jada P70-UP aid for her right ear with an earmold for $2,610 and that includes her earmold. The fee structure for dispensing of hearing instruments form was reviewed, signed, and patient was given a copy. Rec: 1. Follow up with Dr. Quan regarding todays results. 2. Return to the office for hearing aid fitting. 30 minutes will be fine. dusty Not available 11/22/2024 14:47:16 Plan of Treatment Reminders Order Date Submit Date Provider Last Modified By Organization Details Last Modified Time Details Appointments Establis [facility] Patient 30.EST 2024 08:00A M Pooja Nicole Not available Not available Not available Lab None recorded . Referral None recorded . Procedures None recorded . Surgeries None recorded . Imaging None recorded . Medication Orders None recorded . Patient TargetsNo targets recorded. Patient InstructionsNo instructions recorded. Reason for Referral None Reported. 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 Procedures Surgical History Date Name Laterality Status Provider Name and Address Organization Details Recorded Time Appendectomy completed Not Available Health Note 08/13/2024 13:53:05 Colonoscopy with biopsy completed Not Available Health Note 08/13/2024 13:53:05 Removal of gallbladder completed Not Available Health Note 08/13/2024 13:53:05 Removal of tonsils completed Not Available Health Note 08/13/2024 13:53:05 Total hip arthroplasty completed Not Available Health Note 08/13/2024 13:53:05 Imaging Results None recorded. Procedure Notes None recorded. Medical Equipment None Reported. Allergies Allergen ID Allergen Name Allergen Category Reaction Reaction Severity Criticality Documentation Date Start Date Code Code System Note Provider Name and Address Organization Details Recorded Time 9748248 Substance with sulfonami de structure and antibacte rial mechanism of action (substanc e) medicatio n Not available Not available Not available 10/27/20232021 48284 8003 SNOMED Not Available Not Available Not Available 1697605 metformin hydrochlo ride medicatio n Not available Not available Not available 10/27/20232021 04285 3 RxNorm Not Available Not Available Not Available 9462272 mesalamin e medicatio n Not available Not available Not available 10/27/20232021 52065 RxNorm Not Available Not Available Not Available Medications Name Sig Start Date Stop Date Status Note LastModified by Organization Details LastModified Time furosemide 40 mg tablet active Not Available Not Available No t Available atorvastatin 10 mg tablet active Not Available Not Available No t Available fluconazole 150 mg tablet active Not Available Not Available No t Available alendronate 70 mg tablet active Not Available Not Available No t Available sertraline 100 mg tablet active Not Available Not Available No t Available amlodipine 5 mg tablet active Not Available Not Available Not Available omeprazole 40 mg capsule,delayed release active Not Available Not Available Not Available potassium chloride ER 20 mEq tablet,extended release(part/cr yst) active Not Available Not Available Not Available cephalexin 500 mg capsule 08/15 completed Not Available Not Available Not Available levothyroxine 150 mcg tablet active Not Available Not Availab le Not Available levofloxacin 500 mg tablet 08/15 completed Not Available Not Available Not Available albuterol sulfate HFA 90 mcg/actuation aerosol inhaler 08/15 completed Not Available Not Available Not Available ketoconazole 2 % topical cream 08/15 completed Not Available Not Available Not Available valsartan 160 mg tablet active Not Available Not Available No t Available mirtazapine 7.5 mg tablet active Not Available Not Available No t Available Jardiance 10 mg tablet active Not Available Not Available Not Available Vitals Date Recorded Body weight Body mass index (BMI) Body height Body temperature Heart rate Systolic blood pressure Diastolic blood pressure Provider Name and Address Organization Details Last Updated DateTime 4 862476. 17 g 42.5 kg/m2 160.02 cm 97.7 [degF] 113 /min 101 mm[Hg] 65 mm[Hg] Amanda North [facility] 4 11:42:32 Social History Question Answer Notes LastModified by Organizat ion Details LastModified Time Tobacco Smoking Status Never Smoker Not Available Health Note 08/13/2024 13:53:06 Do You Have An Advance Directive? No [email or web address] Information not available 08/13/2024 What Is Your Level Of Alcohol Consumption? Occasional [email or web address] Information not available 08/13/2024 How Many Times Per Week Do You Consume Alcohol? Less Than 1 Time Per Week [email or web address] Information not available 08/13/2024 What Is Your Level Of Caffeine Consumption? Moderate [email or web address] Information not available 08/13/2024 Are You Currently Employed? No [email or web address] Information not available 08/13/2024 What Is Your Occupation? Retired [email or web address] Information not available 08/13/2024 How Many Times Per Week Do You Exercise? Less Than 1 Time Per Week [email or web address] Information not available 08/13/2024 What Was The Date Of Your Most Recent Tobacco Screening? 08/15/2024 [email or web address] Information not available 08/13/2024 What Is Your Relationship Status? [email or web address] Information not available 08/13/2024 Do You Use Any Illicit Or Recreational Drugs? No [email or web address] Information not available 08/13/2024 Sex: Unknown Functional Status Question Answer Note LastModified by Organization D etails LastModified Time What is your exercise level? None [email or web address] Information not available 08/13/2024 Mental Status None recorded. Family History Relationship Description Onset Age of this Age Resolved Age Notes LastModified by Organization Details LastModified Time Mother Arthritis [email or web address] Not available 08/13/2024 13:53:05 Mother Osteoporosis [email or web address] Not availa ble 08/13/2024 13:53:05 Father Heart disease [email or web address] Not available 2023 13:53:05 Father Hypertensive disorder [email or web address] Not available 2023 13:53:05 Maternal Grandmother Heart disease [email or web address] Not available 2023 13:53:05 Medical History Condition Response Diabetes Y Anxiety Disorder N Bleeding Disorder N Attention-deficit Hyperactivity Disorder N High Blood Pressure Y Arthritis Y Hyperlipidemia N Cancer N Stroke N Thyroid Problems Y Asthma N Depression N COPD N Anemia N Seizures N Heart Disease N Fibromyalgia N Osteoporosis N Kidney Disease N Gynecological HistoryNo gynecological history recorded. Obstetrics History GPAL:G 0 P 0 0 0 0 Past Encounters Encounter ID Performer Location Encounter Start Date Encounter Closed Date Diagnosis/Indication Diagnosis SNOMED-CT Code Diagnosis ICD10 Code Diagnosis Note [id number] Melissa Tyson [facility] 4[facility] Audiology [address] [place] [address] 07/21/2024 12:04:01 07/21/2024 13:03:55 Mixed conductive and sensorineural hearing loss, bilateral 433308084 H90.6 [id number] Dean Perkins MD [facility] [place] 4th ENT ([place]) [address] [place] [address] 08/15/2024 11:12:15 08/15/2024 12:28:40 Mixed conductive and sensorineural hearing loss, bilateral 665363395 H90.6 Chronic in flammation of bilateral mastoid cavities 0915149190 909031 H70.13 [id number] Melissa Tyson [facility] [place] 4th Audiology [address] [place] [address] 11/22/2024 11:54:50 11/22/2024 13:02:56 Mixed conductive and sensorineural hearing loss, bilateral 183774530 H90.6 Health Concerns Section Related Observation LastModified by Organization Detai ls LastModified Time None Recorded Concern Status LastModified by Organization Details LastModified Time None Recorded Advance Directives Directive N: Payers Encounter Date Sequence Insurance Name Policy Number Policy Snyder Covered Member ID Snyder Member ID Guarantor Name 07/21/2024 1 [place] Iram Lord [id number] Iram Lord 07/21/2024 2 [facility] () Iram Lord [id number] Iram Lord 08/15/2024 1 [place] Iram Lord [id number] Iram Lord 08/15/2024 2 [facility] [employer] [facility] [place] () Iram Lord [id number] Iram Lord 11/22/2024 1 [place] Iram Lord [id number] Iram Lord 11/22/2024 2 [facility] [employer] [facility] [place] () Iram Lord [id number] Iram Lord OBGyn Episode No OBEpisode recorded.
--- OUTSIDE RECORDS SUMMARY | 2024-11-28 14:19 | XMS_ITS | Encounter Summary ---
Author Organization [facility] Address [address] [place] [address] Care Team Providers Care Material Inspector Name Role Phone Nilesh Quan MD Primary Care Provider [phone] Reason for Referral * Procedure (Routine) - New Request Specialty Diagnoses / Procedures Referred By Contac t Referred To Contact Diagnoses Hypoxemia Procedures Complete PFT (pre/post [place], Lung Vol, Diff Capacity) (95090, 88086, 97073, 20536) Nilesh Quan MD [address] [place] [address] Phone: tel: fax: Referral ID Status Reason Start Date Expiration Date V isits Requested Visits Authorized New Request 11/03/2024 12/04/2025 1 1 R INSTALLER Encounter Details Date Type Department Care Team (Late st Contact Info) Description 11/03/2024 Transcribe Orders [facility] Pre Access Team [address] [place] [address] Nilesh Quan MD [address] [place] [address] Social History Tobacco Use Types Packs/Day Years Used Date Smoking Tobacco: Never Smokeless Tobacco: Never [facility] Utilities Answer Date Recorded In the past 12 months has [facility] [employer] electric, gas, oil, or water company threatened [...] any time in the past 12 m [facility], were you homeless or living in a nursing home (including now)? No 11/01/2024 Comments Unknown Sex and Gender Information Value Date Recorded Sex Assigned at Female 11/01/2024 11:54 AM PIPER INSTALLER Legal Sex Female 5:59 PM PIPER INSTALLER Gender Identity Not on file Sexual Orientation Not on file documented as of this encounter Functional Status * Are you deaf or do you have serious difficulty hearing Answer Date of Assessment Author Status No 11/01/2024 12:16 PM PIPER INSTALLER Liat Oconnor R N Active * Are you blind or do you have serious difficulty seeing, even when wearing glasses? Answer Date of Assessment Author Status No 11/01/2024 12:16 PM PIPER INSTALLER Liat Oconnor R N Active * Do you have serious difficulty walking or climbing stairs? Answer Date of Assessment Author Status No 11/01/2024 12:16 PM iLat Nieves R N Active * Do you [...] Diagnoses Orde r Schedule Complete PFT (pre/post [place], Lung Vol, Diff Capacity) (65051, 74155, 29923, 17529) PFT Routine Hypoxemia Expected: 11/03/2024, Expires: 11/03/2025 documented as of this encounter Visit Diagnoses Diagnosis Hypoxemia- Primary documented in this encounter Care Teams Material Inspector Relationship Specialty Start Date End Date Nilesh Quan MD [address] [facility] [place] [id number] PCP - General FAMILY PRACTICE 09/24/20 documented as of this encounter
--- OUTSIDE RECORDS SUMMARY | 2024-11-28 14:19 | XMS_ITS | Clinical Summary ---
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
--- OUTSIDE RECORDS SUMMARY | 2024-11-28 14:19 | XMS_ITS | Clinical Summary ---
Author Organization [facility] Address [address] [place] [address] Care Team Providers Care Film Process Operator Name Role Phone Nilesh Quan MD Primary Care Provider [phone] Allergies Active Allergy Reactions Criticality Noted Date [...] daily. Active Calcium Carbonate-Vit D-Min (CALCIUM 1200) 9129-0635 MG-UNIT Chew Tab Chew 1 tablet by [...] Department Care Team Description 11/03/2024 Transcribe Orders [facility] Pre Access Team [address] [place] [address] Nilesh Quan MD 11/01/2024 12:00 PM ACID LOADER - 11/02/2024 12:27 PM [facility] Hospital Encounter [place] [facility] [address] [place] [address] Nilesh Quan MD Discharge Disposition: Home or Self Care (Routine Discharge) 11/01/2024 Travel from Last 3 Months Immunizations Name Administration Dates Next Due Influenza Adult (Generic) 07/01/2021 Social History Tobacco Use Types Packs/Day Years Used Date Smoking Tobacco: Never Smokeless Tobacco: Never Tobacco Cessation:Counseling Given: Not Answered [facility] Utilities Answer Date Recorded In the past 12 months has [facility] [employer], [employer], oil, or water [employer] threatened to shut off services in your [...] any time in the past 12 m [facility], were you homeless or living in a assisted (including now)? No 11/01/2024 Comments Unknown Sex and Gender Information Value Date Recorded Sex Assigned at Female 11/01/2024 11:54 AM ACID LOADER Legal Sex Female 5:59 PM ACID LOADER Gender Identity Not on file Sexual Orientation Not on file Last Filed Vital Signs Vital Sign Reading Time Taken Comments Blood Pressure 151/69 11/02/2024 5:23 AM ACID LOADER Pulse 85 11/02/2024 5:23 AM ACID LOADER Temperature 36.6 C (97.9 F) 11/02/2024 5:23 AM ACID LOADER Respiratory Rate 18 11/02/2024 5:23 AM ACID LOADER Oxygen Saturation 94% 11/02/2024 5:23 AM ACID LOADER Inhaled Oxygen Concentration - - Weight 108 kg (238 lb) 11/01/2024 12:15 PM ACID LOADER Height 160 cm (5' 3 ) 11/01/2024 12:15 PM ACID LOADER Body Mass Index 42.16 11/01/2024 12:15 PM ACID LOADER Plan of Treatment Health Maintenance Due Date [...] Procedure Name Priority Date/Time Associated Diagnosis Comments HOME O2 EVAL Routine 11/02/2024 7:19 AM ACID LOADER URINE BACTERIA CULTURE Routine 4:52 PM ACID LOADER HC URINALYSIS AUTO W/MICRO Routine 11/01/2024 4:52 PM ACID LOADER CTA CHEST PE PROTOCOL STAT 11/01/2024 3:07 PM ACID LOADER PRO-BRAIN NATRIURETIC PEPTIDE Routine 11/01/2024 1:14 PM ACID LOADER COMPREHENSIVE METABOLIC PANEL Routine 11/01/2024 1:14 PM ACID LOADER CBC W/DIFF AUTOMATED STAT 11/01/2024 1:14 PM ACID LOADER from Last 3 Months Results * (ABNORMAL) URINALYSIS (11/01/2024 4:52 PM ACID LOADER) COLOR (U) YELLOW 11/01/2024 5:02 PM [facility] TRANSPARENCY CLEAR 11/01/2024 5:02 PM [facility] SPECIFIC GRAVITY (U) 1.010 1.000 - 1.025 11/01/2024 5:02 PM [facility] U PH 5.5 5.0 - 8.0 11/01/2024 5:02 PM [facility] LEUKOCYTES (U) NEGATIVE NEGATIVE 11/01/2024 5:02 PM [facility] NITRITES NEGATIVE NEGATIVE 11/01/2024 5:02 PM [facility] PROTEIN RANDOM (U) NEGATIVE NEGATIVE 11/01/2024 5:02 PM [facility] GLUCOSE (U) 2+(A) NEGATIVE 11/01/2024 5:02 PM [facility] KETONES MG/DL (U) NEGATIVE NEGATIVE 11/01/2024 5:02 PM [facility] UROBILINOGEN 1.0(H) <1.0 EU/DL 11/01/2024 5:02 PM [facility] BILIRUBIN (U) NEGATIVE NEGATIVE 11/01/2024 5:02 PM [facility] BLOOD (U) NEGATIVE NEGATIVE 11/01/2024 5:02 PM [facility] WBC/HPF 0-5 0 - 5 /HPF 11/01/2024 5:02 PM [facility] RBC/HPF 0-5 0 - 5 /HPF 11/01/2024 5:02 PM [facility] EPI/LPF RARE /LPF 11/01/2024 5:02 PM [facility] BACTERIA (U) 1+ /HPF 11/01/2024 5:02 PM [facility] URINE SPECIMEN OBTAINED BY CLEAN CATCH PROCEDURE / Unknown 11/01/2024 4:52 PM ACID LOADER us Nilesh Quan MD URINE ORDERABLES Final Result Performing Organization Address City/[facility] Co de Phone Number [facility] [address] [place] [address], [place] [phone] * URINE BACTERIA CULTURE (11/01/2024 4:52 PM ACID LOADER) SPEC DESCRIPTION URINE CLEAN CATCH 11/01/2024 4:52 PM ACID LOADER [facility] SPECIAL REQUESTS NO SPECIAL REQUEST 11/01/2024 4:52 PM ACID LOADER [facility] CULTURE RESULT FEW CONTAMINANTS 03/2025 9:54 AM ACID LOADER [facility] URINE SPECIMEN OBTAINED BY CLEAN CATCH PROCEDURE / Unknown 11/01/2024 4:52 PM ACID LOADER 11/01/2024 4:56 PM ACID LOADER us Nilesh Quan MD MICROBIOLOGY - GENERAL ORDERAB LES Final Result Performing Organization Address City/[facility] Co de Phone Number [facility] [address] [place] [address], [place] [phone] [facility] [address] [place] [address], [place] [phone] * CTA CHEST PE PROTOCOL (11/01/2024 3:07 PM ACID LOADER) Anatomical Region Laterality Modality Chest Computed Tomogra phy 11/01/2024 3:29 PM ACID LOADER Impressions 11/01/2024 3:44 PM ACID LOADER IMPRESSION: 1. Negative for pulmonary embolism as described. 2. Centrilobular emphysema and probable small airways disease. 3. No findings of pneumonia. No pleural effusion. Ordered By: NILESH QUAN Interpreted By: Barry Parrish MD, 11/01/2024 3:29 PM Narrative 11/01/2024 3:44 PM ACID LOADER [address] [place] [address] Examination: CTA chest. Exam time: 1505 hours. [...] Procedure Note Barry Parrish MD - 11/01/[address] [place] [address] Examination: CTA chest. Exam time: 1505 hours. [...] By: Barry Parrish MD, 11/01/2024 3:29 PM us Nilesh Quan MD CT Final Result * PRO-BRAIN NATRIURETIC PEPTIDE (11/01/2024 1:14 PM ACID LOADER) PRO-B TYPE NATRIURETIC PEPTIDE 65 <450 PG/ML 11/01/2024 1:50 PM ACID LOADER [facility] Comment: CUT POINTS ESTABLISHED BY INTERNATIONAL [...] 72% FOR ACUTE CHF. 11/01/2024 1:14 PM ACID LOADER us Nilesh Quan MD LABORATORY Final Result [facility] [address] [place], [place] [id number], * (ABNORMAL) COMPREHENSIVE METABOLIC PANEL (11/01/2024 1:14 PM ACID LOADER) SODIUM S/P/B 138 136 - 145 MMOL/L 11/01/2024 1:50 PM [facility] POTASSIUM S/P/B 3.4(L) 3.5 - 5.1 MMOL/L 11/01/2024 1:50 PM [facility] CHLORIDE S/P/B 100 98 - 107 MMOL/L 11/01/2024 1:50 PM [facility] CO2 27.9 21.0 - 32.0 MMOL/L 11/01/2024 1:50 PM [facility] GLUCOSE 138(H) 70 - 99 MG/DL 11/01/2024 1:50 PM [facility] Comment: FASTING GLUCOSE 100 TO 125 MG/DL IS CONSISTENT WITH IMPAIRED FASTING GLUCOSE. FASTING GLUCOSE >125 MG/DL IS CONSISTENT WITH DIABETES. RANDOM GLUCOSE >200 MG/DL WITH HYPERGLYCEMIC SYMPTOMS IS CONSISTENT WITH DIABETES. PER ADA GUIDELINES BUN 17 6 - 24 MG/DL 11/01/2024 1:50 PM [facility] CREATININE S/P/B 0.84 0.55 - 1.02 MG/DL 11/01/2024 1:50 PM [facility] CALCIUM S/P/B 8.4 8.4 - 10.5 MG/DL 11/01/2024 1:50 PM [facility] BILIRUBIN TOTAL S/P/B 0.7 0.2 - 1.0 MG/DL 11/01/2024 1:50 PM [facility] Comment: THIS ASSAY IS NOT RECOMMENDED FOR PATIENTS UNDERGOING TREATMENT WITH ELTROMBOPAG DUE TO THE POTENTIAL FOR FALSELY ELEVATED RESULTS. ALKALINE PHOSPHATASE S/P/B 113 55 - 142 U/L 11/01/2024 1:50 PM [facility] AST 47(H) 15 - 37 U/L 11/01/2024 1:50 PM [facility] ALT 29 14 - 59 U/L 11/01/2024 1:50 PM ACID LOADER [facility] TOTAL PROTEIN S/P/B 8.8(H) 6.4 - 8.2 G/DL 11/01/2024 1:50 PM ACID LOADER [facility] ALBUMIN S/P/B 3.4 3.4 - 5.0 G/DL 11/01/2024 1:50 PM ACID LOADER [facility] ANION GAP 10.1 5.0 - 15.0 MMOL/L 11/01/2024 1:50 PM ACID LOADER [facility] OSMOLALITY (CALC) 290 MOSM/KG 025 1:50 PM ACID LOADER [facility] Comment:REFERENCE RANGE NOT ESTABLISHED GFR ESTIMATE 72(L) >89 ML/MIN/1. 73 M2 11/01/2024 1:50 PM ACID LOADER [facility] GFR NOTES GFR REFERENCE S: 11/01/2024 1:50 PM ACID LOADER [facility] Comment: THE ESTIMATED GFR IS [...] FAILURE: <15 ml/min/1.73 m2 11/01/2024 1:14 PM ACID LOADER us Nilesh Quan MD LABORATORY Final Result [facility] [address] [place] [address] [place] [address], * (ABNORMAL) CBC W/DIFF AUTOMATED (11/01/2024 1:14 PM ACID LOADER) WBC 11.63(H) 4.00 - 10.80 x10'3/uL 11/01/2024 1:24 PM [facility] RBC 4.52 4.10 - 5.40 x10'6/uL 11/01/2024 1:24 PM [facility] HGB 11.3(L) 12.0 - 16.0 G/DL 11/01/2024 1:24 PM [facility] HCT 36.9 36.0 - 47.0 % 11/01/2024 1:24 PM [facility] MCV 81.6 78.0 - 100.0 FL 11/01/2024 1:24 PM [facility] MCH 25.0(L) 27.0 - 31.0 PG 11/01/2024 1:24 PM [facility] MCHC 30.6(L) 33.0 - 36.0 G/DL 11/01/2024 1:24 PM [facility] RDW 18.7(H) 11.5 - 14.5 % 11/01/2024 1:24 PM [facility] PLT 258 150 - 350 x10'3/uL 11/01/2024 1:24 PM [facility] MPV 11.7(H) 7.4 - 10.4 FL 11/01/2024 1:24 PM [facility] CBC COMMENT NORMAL REFERENCE RANGE NOT ESTABLISHED FOR THE PROPORTIONAL LEUKOCYTE DIFFERENTIAL. 11/01/2024 1:24 PM [facility] NEUTROPHILS % 59.7 % 11/01/2024 1:24 PM [facility] LYMPHOCYTES % 29.4 % 11/01/2024 1:24 PM [facility] MONOCYTES % 7.3 % 11/01/2024 1:24 PM [facility] EOSINOPHILS % 2.5 % 11/01/2024 1:24 PM [facility] BASOPHILS % 0.8 % 11/01/2024 1:24 PM [facility] IMMATURE GRANS % 0.3 % 11/01/19 1:24 PM [facility] NRBC % 0.0 % 11/01/2024 1:24 PM ACID LOADER [facility] ABS. NEUTROPHILS 6.95 1.60 - 8.30 x10'3/uL 11/01/2024 1:24 PM ACID LOADER [facility] ABS. LYMPHOCYTES 3.42 0.80 - 4.70 x10'3/uL 11/01/2024 1:24 PM ACID LOADER [facility] ABS. MONOCYTES 0.85 0.00 - 1.50 x10'3/uL 11/01/2024 1:24 PM ACID LOADER [facility] ABS. EOSINOPHILS 0.29 0.00 - 0.40 x10'3/uL 11/01/2024 1:24 PM ACID LOADER [facility] ABS. BASOPHILS 0.09 0.00 - 0.20 x10'3/uL 11/01/2024 1:24 PM ACID LOADER [facility] ABS. IMMATURE GRANULOCYTES 0.03 0.00 - 0.03 x10'3/uL 11/01/2024 1:24 PM ACID LOADER [facility] ABS. NUCLEATED RBC'S 0.00 0.00 - 0.01 x10'3/uL 11/01/2024 1:24 PM ACID LOADER [facility] 11/01/2024 1:14 PM ACID LOADER Nilesh Quan MD LABORATORY Final Result Performing Organization Address City/State/[facility] Co de Phone Number [facility] [address] [place] [address], from Last 3 Months Insurance MEDICARE [employer] Advance Directives * Full Code (Latest Code Status on File) Date Activated Date Inactivated Comments 11/01/2024 4:54 PM 11/02/2024 2:27 PM Care Teams Film Process Operator Relationship Specialty Start Date End Date Nilesh Quan MD [address] [place] [phone] PCP - General FAMILY PRACTICE 09/24/20
== END 2024-11-28 12:42 | disposition home or self-care (01) ==
PROVIDERS: PCP Family Medicine; Visit Provider Physician Assistant
DX: R06.02 Shortness of breath (principal); R94.2 Abnormal results of pulmonary function studies
CPT/HCPCS: 94060; 94726; 94729

== ENCOUNTER 2025-02-09 13:44 | Outpatient (CLI) | payer MEDICARE, SELFPAY ==
--- OUTSIDE RECORDS SUMMARY | 2025-02-09 13:47 | XMS_ITS | Clinical Summary ---
Author Organization [facility] Address [address] [place] [address] Phone Care Team Providers Care Single Spindle Screw Machine Operator Name Role Phone Nilesh Quan MD Primary Care Provider [phone] Allergies Active Allergy Reactions Criticality Noted Date [...] on file Legal Sex Female 2:31 PM SPARE PARTS CLERK Gender Identity Not on file Sexual Orientation [...] Due Date Last Done Comments Hepatitis C Virus (HCV) Screening 1950 TdaP [...] age to complete this topic Insurance MEDICARE [employer] Care Teams Single Spindle Screw Machine Operator Relationship Specialty Start Date End Date Nilesh Quan MD [address] [facility] [place] [address] PCP - General Family Medicine 11/15/17
--- OUTSIDE RECORDS SUMMARY | 2025-02-09 13:47 | XMS_ITS | Encounter Summary ---
Author Organization [facility] Address [address] [facility] Attn: Epic Prelude ADT SIOBHAN DOLAN [phone] Care Team Providers Care Airport Utility Worker Name Role Phone Unavailable Primary Care Provider [...] on file Legal Sex Female 4:17 AM GRE INSTRUCTOR Gender Identity Not on file Sexual Orientation Not on file documented as of this encounter Plan of Treatment Not on file documented as of this encounter Visit Diagnoses Not on filedocumented in this encounter
--- OUTSIDE RECORDS SUMMARY | 2025-02-09 13:47 | XMS_ITS | Clinical Summary ---
Author Organization [facility] Address [address] [place] [address] Care Team Providers Care Rotor Coil Taper Name Role Phone Nilesh Quan MD Primary Care Provider [phone] Allergies Active Allergy Reactions Criticality Noted Date [...] daily. Active Calcium Carbonate-Vit D-Min (CALCIUM 1200) 9337-9628 MG-UNIT Chew Tab Chew 1 tablet by mouth daily. Active Vitamin D3 (CHOLECALCIFERO L) 50 mcg tablet Take 1 tablet (50 mcg total) by mouth daily. Active alendronate (FOSAMAX) 70 MG tablet Take 1 tablet (70 mg total) by mouth every 7 days. Active Acetaminophen (TYLENOL ARTHRITIS PAIN OR) Take 1-2 tablets by mouth every 8 (eight) hours as needed. Active Active Problems Problem Noted Date Diagnosed Date Hypoxia 11/01/2024 Immunizations Immunization Administration Dates Next Due Influenza Adult (Generic) 07/01/2021 Social History Tobacco Use Types Packs/Day Years Used Date Smoking Tobacco: Never Smokeless Tobacco: Never Tobacco Cessation:Counseling Given: Not Answered [facility] Utilities Answer Date Recorded In the past 12 months has [facility] [employer], [employer], oil, or water [employer] threatened to shut off services in your [...] any time in the past 12 m [facility], were you homeless or living in a senior care (including now)? No 11/01/2024 Comments Unknown Sex and Gender Information Value Date Recorded Sex Assigned at Female 11/01/2024 11:54 AM BIODIESEL PRODUCTION ASSOCIATE Legal Sex Female 5:59 PM BIODIESEL PRODUCTION ASSOCIATE Gender Identity Not on file Sexual Orientation Not on file Last Filed Vital Signs Vital Sign Reading Time Taken Comments Blood Pressure 151/69 11/02/2024 5:23 AM BIODIESEL PRODUCTION ASSOCIATE Pulse 85 11/02/2024 5:23 AM BIODIESEL PRODUCTION ASSOCIATE Temperature 36.6 C (97.9 F) 11/02/2024 5:23 AM BIODIESEL PRODUCTION ASSOCIATE Respiratory Rate 18 11/02/2024 5:23 AM BIODIESEL PRODUCTION ASSOCIATE Oxygen Saturation 94% 11/02/2024 5:23 AM BIODIESEL PRODUCTION ASSOCIATE Inhaled Oxygen Concentration - - Weight 108 kg (238 lb) 11/01/2024 12:15 PM BIODIESEL PRODUCTION ASSOCIATE Height 160 cm (5' 3 ) 11/01/2024 12:15 PM BIODIESEL PRODUCTION ASSOCIATE Body Mass Index 42.16 11/01/2024 12:15 PM BIODIESEL PRODUCTION ASSOCIATE Plan of Treatment Health Maintenance Due Date Last Done Comments Hepatitis C 1966 DTaP, Tdap and Td Vaccines ( 1 - Tdap) 1967 Pneumococcal Vaccine: 50+ Years (1 of 1 - PCV) 1998 Zoster Vaccines (1 of 2) 1998 Annual Medicare Wellness Visit 2013 Dexa Scan (General) 2013 RSV Immunization or 60+ Years (1 - 1-dose 75+ series) 2023 COVID-19 Vaccine (4 - 2023-2 5 season) 2024 09/03/2021, 01/10/2021, 12/13/2020 Meningococcal B Vaccine Aged Out No l onger eligible based on patient's age to complete this topic Meningococcal Vaccine Aged Out No navdeep shauna eligible based on patient's age to complete this topic RSV Immunizations Under 20 Months Aged Out No longer eligible b ased on patient's age to complete this topic Insurance MEDICARE [employer] Advance Directives * Full Code (Latest Code Status on File) Date Activated Date Inactivated Comments 11/01/2024 4:54 PM 11/02/2024 2:27 PM Care Teams Rotor Coil Taper Relationship Specialty Start Date End Date Nilesh Quan MD [address] [place] [phone] PCP - General FAMILY PRACTICE 09/24/20
--- OUTSIDE RECORDS SUMMARY | 2025-02-09 13:47 | XMS_ITS | Clinical Summary ---
Author Organization [facility] Address [address] [facility] Attn: Epic Prelude ADT SIOBHAN DOLAN [phone] Care Team Providers Care Government Service Executive Name Role Phone Unavailable Primary Care Provider Unavailabl e Social History Tobacco Use Types Packs/Day Years Used Date Smoking Tobacco: Never Assessed Comments Unknown Sex and Gender Information Value Date Recorded Sex Assigned at Not on file Legal Sex Female 4:17 AM GEOGRAPHIC INFORMATION SYSTEM SURVEYOR Gender Identity Not on file Sexual Orientation [...]
--- OUTSIDE RECORDS SUMMARY | 2025-02-09 13:48 | XMS_ITS | Data Portability ---
Author Organization [facility], [address] [facility] ([place]) Address [address] [place] [address] Care Team Providers Care Outsole Handler Name Role Phone AMINATA QUAN Primary Care Provider [phone] AMINATA QUAN Referring Provider [phone] Assessment Encounter Date Assessment Date Assessment LastModified [...] performed bilaterally by Dr. Lazarus Winkler in [place] in the distant past and she was [...] if and when she has further issues. [email or web address] Not available 08/15/2024 12:32:27 11/22/2024 11/22/2024 Ms. [...] mixed hearing loss in both ears. Speech Radiologic Technology Teacher Thresholds were 80 DB HL, bilaterally. Word [...] be fine. dusty Not available 11/22/2024 14:47:16 12/22/2024 12/22/2024 Ms. Lord was seen for a hearing aid fitting. Hearing Aid Make and Model: Phonak Jada L70-UP Serial Numbers: Right: [id number] Left: [id number] Repair/Loss and Damage Warranty: 01/10/2028 Earmold Bluetooth Real Ear Speech Mapping was conducted. The adaptation level is at 100%. I showed patient how to charge, clean, and insert and remove both hearing aids. The phone was set up with the patient's RIGHT hearing aid. I set up the [employer] application. Patient will be billed $2,610.00 which includes her right earmold. The Hearing Aid Dispensing Record form was reviewed, signed, and patient was given a copy. Rec: 1. Return for a two week hearing aid check. She signed the medical waiver. dusty Not available 12/22/2024 10:03:06 01/26/2025 01/26/2025 Ms. Lord was seen for her 1 month hearing aid check. She is doing fairly well with her hearing aids. She is able to hear well; however, the right earmold is causing a sore spot in her right ear canal and the left tubing has caused significant irritation on the outer side where the tube rests. I ground down the right earmold. I retubed the left earmold and angled the tube in different way. Recommendations: 1. Return to the office in 1 month for her end of trial check or sooner if needed. 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 Procedures [...] Name and Address Organization Details Recorded Time 2868521 Substance with sulfonami de structure and antibacte rial mechanism of action (substanc e) medicatio n Not available Not available Not available 10/27/20232021 14898 8003 SNOMED [facility] 04:21:50 9200422 metformin hydrochlo ride medicatio n Not available Not available Not available 10/27/20232021 66457 3 RxNorm Not Available [facility] 4 04:21:50 2751253 mesalamin e medicatio n Not available Not available Not available 10/27/20232021 87490 RxNorm Not Available [facility] 4 04:21:50 Medications Name Sig Start Date Stop Date [...] Address Organization Details Last Updated DateTime 4 430790. 17 g 42.5 kg/m2 160.02 cm 97.7 [degF] 113 /min 101 mm[Hg] 65 mm[Hg] Amanda North [facility] 4 11:42:32 Social History Question Answer Notes LastModified by Organizat ion Details LastModified Time Tobacco Smoking Status Never Smoker Not Available Health Note 08/13/2024 13:53:06 Do You Have An Advance Directive? No [email or web address] Information not available 08/13/2024 What Is Your Level Of Caffeine Consumption? Moderate [email or web address] Information not available 08/13/2024 How Many Times Per Week Do You Exercise? Less Than 1 Time Per Week [email or web address] Information not available 08/13/2024 What Was The Date Of Your Most Recent Tobacco Screening? 08/15/2024 [email or web address] Information not available 08/13/2024 What Is Your Relationship Status? [email or web address] Information not available 08/13/2024 Sex: Unknown Functional Status Question Answer Note LastModified by Organizat ion Details LastModified Time How many times per week do you consume alcohol? Less than 1 time per week [email or web address] Information not available 08/13/2024 Do you use any illicit or recreational drugs? No [email or web address] Information not available 08/13/2024 What is your level of alcohol consumption? Occasional [email or web address] Information not available 08/13/2024 Are you currently employed? No [email or web address] Information not available 08/13/2024 What is your occupation? Retired [email or web address] Information not available 08/13/2024 What is your exercise level? None [email or web address] [...] SNOMED-CT Code Diagnosis ICD10 Code Diagnosis Note [id number] Melissa Tyson [facility] [address] [place] [address] 07/21/2024 12:04:01 07/21/2024 13:03:55 Mixed conductive and sensorineural hearing loss, bilateral 804190618 H90.6 [id number] Dean Perkins MD [facility] [place] ([place] [address] [place] [address] 08/15/2024 11:12:15 08/15/2024 12:28:40 Mixed conductive and sensorineural hearing loss, bilateral 188338733 H90.6 Chronic in flammation of bilateral mastoid cavities 5456419205 600439 H70.13 [id number] Melissa Tyson [facility] [address] [place] [address] 11/22/2024 11:54:50 11/22/2024 13:02:56 Mixed conductive and sensorineural hearing loss, bilateral 609394887 H90.6 [id number] Melissa Tyson [facility] Aud[facility] [address] [place] [address] 12/22/2024 08:47:29 12/22/2024 09:59:28 Mixed conductive and sensorineural hearing loss, bilateral 547972505 H90.6 [id number] Melissa Tyson [facility] Aud[facility] [address] [place] [address] 01/26/2025 09:00:32 01/26/2025 09:45:55 Mixed conductive and sensorineural hearing loss, bilateral 172673252 H90.6 Health Concerns Section Related Observation LastModified by Organization Detai ls LastModified Time None Recorded Concern Status LastModified by Organization Details LastModified Time None Recorded Advance Directives Directive N: Payers Insurance Date Sequence Insurance Name Policy Number Policy Snyder Covered Member ID Snyder Member ID Guarantor Name 01/27/2025 2 [facility] [facility] [place] Iram Lord [id number] Iram Lord 01/25/2025 1 [place] Iram Lord [id number] Iram Lord 09/06/2024 2 UNSPECIFIED REMIT PAYOR Iram Lord OBGyn Episode No OBEpisode recorded.
== END 2025-02-09 13:45 | disposition home or self-care (01) ==
PROVIDERS: PCP Family Medicine; Visit Provider Family Medicine
DX: E03.9 Hypothyroidism, unspecified (principal)
CPT/HCPCS: 36415; 84443

== ENCOUNTER 2025-04-23 11:37 | Outpatient (CLI) | payer MEDICARE, OTHER, SELFPAY ==
--- NOTE | ~2025-04-23 | MM_ITS ---
EXAMINATION: MM screening bertha BI w yessica HISTORY: Screening TECHNIQUE: Craniocaudal and mediolateral oblique 3-D tomosynthesis images were obtained and synthetic 2-D images were generated. CAD analysis was submitted and interpreted. COMPARISON: Comparison to multiple prior studies sequentially, with oldest reviewed study dated 12/15. BREAST PARENCHYMAL COMPOSITION: Not dense: There are scattered areas of fibroglandular density. FINDINGS: There is no evidence of suspicious mass, calcification, or architectural distortion to sugg est malignancy in either breast. There has been no suspicious interval change. IMPRESSION: 1. No mammographic evidence of malignancy. 2. Recommend routine screening mammography in one year. BI-RADS Category 1: Negative Reviewed, dictated and finalized at location B.
--- OUTSIDE RECORDS SUMMARY | 2025-04-23 11:51 | XMS_ITS | Clinical Summary ---
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
--- OUTSIDE RECORDS SUMMARY | 2025-04-23 11:51 | XMS_ITS | Data Portability ---
Author Organization [facility], [address] [facility] ([place]) Address [address]th [place] [address] Care Team Providers Care Insurance Examiner Name Role Phone AMINATA QUAN Primary Care Provider [phone] AMINATA QUAN Referring Provider Assessment Encounter Date Assessment Date Assessment LastModified by Organization Details LastModified Time 08/15/2024 08/15/2024 She is here for follow-up of her Canal wall down mastoid performed bilaterally by Dr. Lazarus Winkler in [place] in the distant past and she was [...] if and when she has further issues. [email or web address] Not available 08/15/2024 12:32:27 11/22/2024 11/22/2024 Ms. [...] mixed hearing loss in both ears. Speech Surgical Orderly Thresholds were 80 DB HL, bilaterally. Word [...] Not available 11/22/2024 14:47:16 12/22/2024 12/22/2024 Ms. oLrd was seen for a hearing aid fitting. Hearing Aid Make and Model: Phonak Jada L70-UP Serial Numbers: Right: [id number] Left: [id number] Repair/Loss and Damage Warranty: 01/10/2028 Earmold Bluetooth Real Ear Speech Mapping was conducted. The adaptation level is at 100%. I showed patient how to charge, clean, and insert and remove both hearing aids. The phone was set up with the patient's RIGHT hearing aid. I set up the [employer] application. Patient will be billed $2,610.00 which [...] if needed. dusty Not available 01/26/2025 17:52:12 03/16/2025 03/16/2025 Ms. Lord was seen for her end of trial check with her 2 Phonak Jada L-UP hearing aids. She is doing well with both hearing aids. I put both hearing aids in the dryer and remove the significant mount of moisture. I retubed the left hearing aid with a dry tube. She would like to keep both hearing aids. Recommendations: 1. Return to the office in 6 months for her next check or sooner if needed. 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 Procedures [...] Name and Address Organization Details Recorded Time 2769331 Substance with sulfonami de structure and antibacte rial mechanism of action (substanc e) medicatio n Not available Not available Not available 10/27/20232021 60409 8003 SNOMED Not Available [facility] 04:21:50 1930385 metformin hydrochlo ride medicatio n Not available Not available Not available 10/27/20232021 78622 3 RxNorm Not Available [facility] 4 04:21:50 4246740 mesalamin e medicatio n Not available Not available Not available 10/27/20232021 53386 RxNorm Not Available [facility] 4 04:21:50 Medications Name Sig Start Date [...] Body height Body temperature Heart rate Systolic And Diastolic Provider Name and Address Organization Details Last Updated DateTime 4 988761. 17 g 42.5 kg/m2 160.02 cm 97.7 [degF] 113 /min 101/65 mm[Hg] Amanda North [facility] 4 11:42:32 Social History Question [...] SNOMED-CT Code Diagnosis ICD10 Code Diagnosis Note [id number] Melissa Tyson [facility] [place] 4[facility] Audiology [address] [place] [address] 07/21/2024 12:04:01 07/21/2024 13:03:55 Mixed conductive and sensorineural hearing loss, bilateral 992881769 H90.6 [id number] Dean Perkins MD [place] [facility] [place] 4[facility] ENT ([place]) [address] [place] [address] 08/15/2024 11:12:15 08/15/2024 12:28:40 Mixed conductive and sensorineural hearing loss, bilateral 323339968 H90.6 Chronic in flammation of bilateral mastoid cavities 5670186063 615216 H70.13 [id number] Melissa Tyson [facility] [facility] 4th Audiology [address] [place] [address] 11/22/2024 11:54:50 11/22/2024 13:02:56 Mixed conductive and sensorineural hearing loss, bilateral 049556163 H90.6 [id number] Melissa Tyson [facility] 4th Audiology [address] [place] [address] 12/22/2024 08:47:29 12/22/2024 09:59:28 Mixed conductive and sensorineural hearing loss, bilateral 982741562 H90.6 [id number] Melissa Tyson [facility] [facility] 4th Audiology [address] [place] [address] 01/26/2025 09:00:32 01/26/2025 09:45:55 Mixed conductive and sensorineural hearing loss, bilateral 793312597 H90.6 [id number] Melissa Tyson [facility] 4th Audiology [address] [place] [address] 03/16/2025 12:37:20 03/16/2025 13:47:29 Mixed conductive and sensorineural hearing loss, bilateral 566921892 H90.6 Health Concerns Section Related Observation LastModified by Organization Detai ls LastModified Time None Recorded Concern Status LastModified by Organization Details LastModified Time None Recorded Advance Directives Directive N: Payers Insurance Date Sequence Insurance Name Policy Number Policy Snyder Covered Member ID Snyder Member ID Guarantor Name 03/17/2025 2 [facility] () Iram Lord [id number] Iram Lord 02/26/2025 1 [place] Iram Lord [id number] Iram Lord 09/06/2024 2 UNSPECIFIED REMIT PAYOR Iram Lord OBGyn Episode No OBEpisode recorded.
--- OUTSIDE RECORDS SUMMARY | 2025-04-23 11:51 | XMS_ITS | Encounter Summary ---
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
--- OUTSIDE RECORDS SUMMARY | 2025-04-23 11:51 | XMS_ITS | Clinical Summary ---
Author Organization 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 Gender Identity Not on file Sexual Orientation [...] 1:19 PM CDT Height 162.6 cm (5' 4) 06/19/2019 1:19 PM CDT Body Mass Index 43.12 06/19/2019 1:19 PM CDT Plan of Treatment Health Maintenance Due Date Last Done Comments Hepatitis C Virus (HCV) Screening 1950 TdaP Immunization 1950 Pneumococcal Immunization (5 0+ years) (1 of 1 - PCV) 1998 Zoster Immunization (1 of 2) 1998 Respiratory Syncytial Virus (RSV) Immunization (Adult) (1 - 1-dose 75+ series) 2023 SARS-COV-2 Immunization ( - season) 2024 09/03/2021, 01/10/2021, 12/13/2020 Influenza Immunization (#1) 2025 Hepatitis B Immunization Aged Out No longer eligible based on patient's age to complete this topic Human Papillomavirus (HPV) Immunization Aged Out No longer eligible b ased on patient's age to complete this topic Meningococcal Immunization (ACWY) Aged Out No longer eligible b ased on patient's age to complete this topic Rotavirus Immunization Aged Out No lo nger eligible based on patient's age to complete this topic Insurance MEDICARE SHADOW Care Teams Customs Examiner Relationship Specialty Start Date End Date Nilesh Quan MD [address] [place] [address] PCP - General Family Medicine 11/15/17
== END 2025-04-23 11:38 | disposition home or self-care (01) ==
LOC: CHSIMG 11:39
PROVIDERS: PCP Family Medicine; Visit Provider Family Medicine
DX: Z12.31 Encounter for screening mammogram for malignant neoplasm of breast (principal)
CPT/HCPCS: 77063; 77067

== ENCOUNTER 2025-05-30 09:42 | Outpatient (CLI) | payer MEDICARE, OTHER, SELFPAY ==
[2025-05-30 10:30] LABS: Alanine Aminotransferase 26 U/L (6-35); Albumin Level 4.5 g/dL (3.5-5.1); Alkaline Phosphatase 117 U/L (38-126); Anion Gap 11 mmol/L (4-12); Aspartate Amino Transferase 49 U/L (14-36); Bilirubin,Total 1.0 mg/dL (0.2-1.3); Blood Urea Nitrogen 18 mg/dL (7-17); Calcium 9.3 mg/dL (8.4-10.2); Carbon Dioxide 27 mmol/L (22-30); Chloride 104 mmol/L (98-107); Cholesterol 121 mg/dL (0-200); Estimated Glomerular Filt Rate > 60; Glucose 150 mg/dL (65-110); HDL Direct 67 mg/dL; Osmolality Calculated 298 mOsm/kg (285-295); Potassium 4.8 mmol/L (3.4-5.0); Sodium 142 mmol/L (137-145); Total Protein 8.9 g/dL (6.3-8.2); Triglycerides 69 mg/dL (<150)
--- OUTSIDE RECORDS SUMMARY | 2025-05-30 10:50 | XMS_ITS | Clinical Summary ---
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
--- OUTSIDE RECORDS SUMMARY | 2025-05-30 10:50 | XMS_ITS | Clinical Summary ---
Author Organization [facility] Address [address] [place] [address] Care Team Providers Care Cork Compounder Name Role Phone Nilesh Quan MD Primary Care Provider [phone] Allergies Active Allergy Reactions Criticality Noted Date [...] daily. Active Calcium Carbonate-Vit D-Min (CALCIUM 1200) 2917-8421 MG-UNIT Chew Tab Chew 1 tablet by [...] Tobacco: Never Tobacco Cessation:Counseling Given: Not Answered [facility] Utilities Answer Date Recorded In the past 12 months has [employer], oil, or water [employer] threatened to shut off services in your [...] any time in the past 12 [facility], were you homeless or living in a half-way (including now)? No 11/01/2024 Comments Unknown Sex and Gender Information Value Date Recorded Sex Assigned at Female 11/01/2024 11:54 AM LATCHER Legal Sex Female 5:59 PM LATCHER Gender Identity Not on file Sexual Orientation Not on file Last Filed Vital Signs Vital Sign Reading Time Taken Comments Blood Pressure 151/69 11/02/2024 5:23 AM LATCHER Pulse 85 11/02/2024 5:23 AM LATCHER Temperature 36.6 C (97.9 F) 11/02/2024 5:23 AM LATCHER Respiratory Rate 18 11/02/2024 5:23 AM LATCHER Oxygen Saturation 94% 11/02/2024 5:23 AM LATCHER Inhaled Oxygen Concentration - - Weight 108 kg (238 lb) 11/01/2024 12:15 PM LATCHER Height 160 cm (5' 3) 11/01/2024 12:15 PM LATCHER Body Mass Index 42.16 11/01/2024 12:15 PM LATCHER Plan of Treatment Health Maintenance Due Date [...] age to complete this topic Insurance MEDICARE [employer] Advance Directives * Full Code (Latest Code Status on File) Date Activated Date Inactivated Comments 11/01/2024 4:54 PM 11/02/2024 2:27 PM Care Teams Cork Compounder Relationship Specialty Start Date End Date Nilesh Quan MD [address] [place] [id number] PCP - General FAMILY PRACTICE 09/24/20
--- OUTSIDE RECORDS SUMMARY | 2025-05-30 10:50 | XMS_ITS | Encounter Summary ---
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
--- OUTSIDE RECORDS SUMMARY | 2025-05-30 10:50 | XMS_ITS | Clinical Summary ---
Author Organization [facility] Address [address] [place] [address] Phone Care Team Providers Care Substation Mechanic Name Role Phone Nilesh Quan MD Primary Care Provider [phone] Allergies Active Allergy Reactions Criticality Noted Date [...] on file Legal Sex Female 2:31 PM VIRTUAL OFFICE ASSISTANT Gender Identity Not on file Sexual Orientation [...] 1-dose 75+ series) 2023 Influenza Immunization (#1) 2025 SARS-COV-2 Immunization ( season) 2025 09/03/2021, 01/10/2021, 12/13/2020 Hepatitis B Immunization Aged [...] age to complete this topic Insurance MEDICARE [employer] Care Teams Substation Mechanic Relationship Specialty Start Date End Date Nilesh Quan MD [address] [facility] [address] PCP - General Family Medicine 11/15/17
== END 2025-05-30 09:43 | disposition home or self-care (01) ==
LOC: CHSLAB 09:50
PROVIDERS: PCP Family Medicine; Visit Provider Family Medicine
DX: E11.9 Type 2 diabetes mellitus without complications (principal)
CPT/HCPCS: 36415; 80053; 80061; 84443

== ENCOUNTER 2025-07-10 14:03 | Outpatient (CLI) | payer MEDICARE, OTHER, SELFPAY ==
--- NOTE | 2025-07-10 14:24 | ECHO_ITS ---
Patient Info Name: Iram Lord Age: 75 years : 1950 Gender: Female Ht: 63 in Wt: 238 lbs BSA: 2.25 m2 HR: 98 bpm BP: 149 / 64 mmHg Technical Quality: Fair Exam Date: 07/10/2025 2:26 PM Patient Status: O Admit Date: 07/10/2025 Exam Type: CA echo doppler color flow Complete two-dimensional, color flow and Doppler transthoracic echocardiogram is performed. Manager Monitoring: Maryann Rubin Attending Provider: Nilesh Quan Summary 1. Complete two-dimensional, color flow and Doppler transthoracic echocardiogram is performed. 2. The aortic valve is not well visualized. Cannot determine number of aortic valve leaflets. 3. There is moderate aortic valve sclerosis. Left Ventricle E/e' 11 is mildly elevated. Left ventricular chamber dimension is normal. Left ventricular systolic function is normal, estimated at 60-65. The left ventricular diastolic function is abnormal. Right Ventricle Right ventricular chamber dimension is normal. Right ventricular systolic function is normal and with normal TAPSE 2.0 cm. Left Atria Left atrial chamber dimension is normal. Right Atria Right atrial chamber dimension is normal. Aortic Valve The aortic valve is not well visualized. Cannot determine number of aortic valve leaflets. There is moderate aortic valve sclerosis. There is very mild aortic valve stenosis based on a peak velocity of 276 cm/s, mean gradient of 17 mmHg, and aortic valve area of 2.0 cm2. There is no aortic valve regurgitation. Pulmonic Valve There is no pulmonic regurgitation. Mitral Valve There is no mitral valve stenosis. There is no mitral valve regurgitation. Tricuspid Valve There is no tricuspid valve regurgitation. Pericardium/Pleural There is no pericardial effusion. Inferior Vena Cava Normal inferior vena cava with >50% collapse upon inspiration consistent with normal right atrial pressure, 5 mmHg. Aorta The aortic root size at the sinus of Valsalva is normal. Left Ventricular Outflow Tract Name Value Normal LVOT 2D LVOT Diameter 2.0 cm LVOT Doppler LVOT Peak Velocity 135 cm/s LVOT Peak Gradient 7 mmHg LVOT Mean Gradient 4 mmHg LVOT VTI 35 cm LVOT VTI/AV VTI Ratio 0.6 LVOT Stroke Volume 110 ml LVOT CO 9.3 l/min LVOT CI 4.1 l/min/m2 Pulmonic Valve Name Value Normal RVOT Doppler RVOT Peak Velocity 74 cm/s RVOT Peak Gradient 2 mmHg PV Doppler PV Peak Velocity 132 cm/s PV Peak Gradient 7 mmHg Mitral Valve Name Value Normal MV Diastolic Function MV E Peak Velocity 110 cm/s MV A Peak Velocity 100 cm/s MV E/A 1.1 MV Decel Time (PW) 287 ms MV Annular TDI MV E/e' (Septal) 14.0 MV E/e' (Lateral) 9.0 MV E/e' (Average) 11.5 Tricuspid Valve Name Value Normal Estimated PAP/RSVP RA Pressure 5 mmHg <=5 Aortic Valve Name Value Normal AV Doppler AV Peak Velocity 276 cm/s AV Peak Gradient 30 mmHg AV Mean Gradient 17 mmHg AV VTI 56 cm AV Area (Cont Eq VTI) 2.0 cm2 >=3.0 AV Area (Cont Eq Won) 1.5 cm2 AV DI (Won) 0.49 AV Regurgitation 2D LVOT Area 3.2 cm2 Ventricles Name Value Normal LV Dimensions 2D/MM IVS Diastolic Thickness (2D) 1.1 cm 0.6-1.0 LVID Diastole (2D) 3.7 cm 3.8-5.2 LVIW Diastolic Thickness (2D) 1.1 cm 0.6-0.9 LVID Systole (2D) 2.6 cm 2.2-3.5 LVOT Diameter 2.0 cm LV Mass (2D Cubed) 122.77 g 67.00-162.00 LV Mass Index (2D Cubed) 55 g/m2 43-95 Relative Wall Thickness (2D) 0.59 <=0.42 LV Fractional Shortening/Ejection Fraction 2D/MM LV Fractional Shortening (2D) 30 % 27-45 LV EF (2D Teichholz) 57 % LV Diastolic Volume (4C MOD) 97 ml LV EF (4C MOD) 59 % LV Diastolic Volume (2C MOD) 77 ml LV EF (2C MOD) 56 % LV Diastolic Volume (BP MOD) 89 ml 46-106 LV Diastolic Volume Index (BP MOD) 40 ml/m2 29-61 LV Systolic Volume (BP MOD) 38 ml 14-42 LV Systolic Volume Index (BP MOD) 17 ml/m2 8-24 LV EF (BP MOD) 57 % 54-74 LV Diastolic Length (4C) 7.7 cm LV Systolic Length (4C) 6.2 cm LV Stroke Volume (4C MOD) 58 ml Atria Name Value Normal LA Dimensions LA Volume (4C A-L) 38 ml RA Dimensions RA Systolic Major Victoria Length (4C) 4.7 cm 2.2-2.8 RA Area (4C) 15.9 cm2 <=18.0 Report Signatures
[2025-07-10 15:42] LABS: Thyroid Stimulating Hormone 2.100 uIU/mL (0.465-4.680)
--- OUTSIDE RECORDS SUMMARY | 2025-07-10 16:04 | XMS_ITS | Clinical Summary ---
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
--- OUTSIDE RECORDS SUMMARY | 2025-07-10 16:04 | XMS_ITS | Encounter Summary ---
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
--- OUTSIDE RECORDS SUMMARY | 2025-07-10 16:04 | XMS_ITS | Clinical Summary ---
Author Organization [facility] Address [address] [place] [address] Care Team Providers Care Sash Repairer Name Role Phone Nilesh Quan MD Primary Care Provider [phone] Allergies Active Allergy Reactions Criticality Noted Date [...] daily. Active Calcium Carbonate-Vit D-Min (CALCIUM 1200) 4925-1231 MG-UNIT Chew Tab Chew 1 tablet by [...] Tobacco: Never Tobacco Cessation:Counseling Given: Not Answered [facility] Utilities Answer Date Recorded In the past 12 months has [facility] [employer], [employer], oil, or water [employer] threatened to shut off services in your [...] any time in the past 12 [address] [place], were you homeless or living in a senior living (including now)? No 11/01/2024 Comments Unknown Sex and Gender Information Value Date Recorded Sex Assigned at Female 11/01/2024 11:54 AM GIS PHYSICAL SCIENTIST Legal Sex Female 5:59 PM GIS PHYSICAL SCIENTIST Gender Identity Not on file Sexual Orientation Not on file Last Filed Vital Signs Vital Sign Reading Time Taken Comments Blood Pressure 151/69 11/02/2024 5:23 AM GIS PHYSICAL SCIENTIST Pulse 85 11/02/2024 5:23 AM GIS PHYSICAL SCIENTIST Temperature 36.6 C (97.9 F) 11/02/2024 5:23 AM GIS PHYSICAL SCIENTIST Respiratory Rate 18 11/02/2024 5:23 AM GIS PHYSICAL SCIENTIST Oxygen Saturation 94% 11/02/2024 5:23 AM GIS PHYSICAL SCIENTIST Inhaled Oxygen Concentration - - Weight 108 kg (238 lb) 11/01/2024 12:15 PM GIS PHYSICAL SCIENTIST Height 160 cm (5' 3) 11/01/2024 12:15 PM GIS PHYSICAL SCIENTIST Body Mass Index 42.16 11/01/2024 12:15 PM GIS PHYSICAL SCIENTIST Plan of Treatment Health Maintenance Due Date Last Done Comments Hepatitis C 1966 DTaP, Tdap and Td Vaccines ( 1 - Tdap) 1967 Pneumococcal Vaccine: 50+ Years (1 of 1 - PCV) 1998 Zoster Vaccines (1 of 2) 1998 Annual Medicare Wellness Visit 2013 Dexa Scan (General) 2013 RSV Immunization or 60+ Years (1 - 1-dose 75+ series) 2023 COVID-19 Vaccine (4 - 2024-2 6 season) 2025 09/03/2021, 01/10/2021, 12/13/2020 Influenza Adult (#1) 2025 07/01/2021, 08/16/2019 Hepatitis A Vaccines Aged Out No long er eligible based on patient's age to complete this topic Meningococcal B Vaccine Aged Out No l onger eligible based on patient's age to complete this topic Meningococcal Vaccine Aged Out No navdeep shauna eligible based on patient's age to complete this topic RSV Immunizations Under 20 Months Aged Out No longer eligible b ased on patient's age to complete this topic Insurance MEDICARE [facility] [employer] Advance Directives * Full Code (Latest Code Status on File) Date Activated Date Inactivated Comments 11/01/2024 4:54 PM 11/02/2024 2:27 PM Care Teams Sash Repairer Relationship Specialty Start Date End Date Nilesh Quan MD [address] [place] [address] PCP - General FAMILY PRACTICE 09/24/20
--- OUTSIDE RECORDS SUMMARY | 2025-07-10 16:04 | XMS_ITS | Clinical Summary ---
Author Organization [facility] Address [address] [place] [address] Phone Care Team Providers Care Ct Scan Special Procedures Technologist Name Role Phone Nilesh Quan MD Primary Care Provider [phone] Allergies Active Allergy Reactions Criticality Noted Date [...] on file Legal Sex Female 2:31 PM CUSTODY OFFICER Gender Identity Not on file Sexual Orientation [...] age to complete this topic Insurance MEDICARE [employer] Care Teams Ct Scan Special Procedures Technologist Relationship Specialty Start Date End Date Nilesh Quan MD [address] [address] PCP - General Family Medicine 11/15/17
== END 2025-07-10 14:04 | disposition home or self-care (01) ==
LOC: CHSIMG 14:07
PROVIDERS: PCP Family Medicine; Visit Provider Family Medicine
DX: E03.9 Hypothyroidism, unspecified (principal); R01.1 Cardiac murmur, unspecified; I35.8 Other nonrheumatic aortic valve disorders
CPT/HCPCS: 36415; 84443; 93306